=== PATIENT | female | born 1955 | race African-American/Black ===

== ENCOUNTER 2019-12-01 20:00 | Emergency (ER) | payer OTHER, SELFPAY ==
--- NOTE | ~2019-12-01 | XR_ITS ---
EXAMINATION: XR chest 2V DATE: 12/01/2019 20:30 INDICATION: Right-sided chest pain and shortness of breath TECHNIQUE: PA and lateral views of the chest are obtained. COMPARISON: None available FINDINGS: The lungs are free of acute opacities. There is no pleural effusion or pneumothorax. The ca rdiomediastinal silhouette is normal. There is mild thoracic spondylosis. There is mild lower thoraci c levocurvature. IMPRESSION: 1. No acute cardiopulmonary abnormality. Reviewed, dictated and finalized at location A.
--- NOTE | 2019-12-01 20:09 | ECG_ITS ---
Measurements Intervals [place] Rate: 99 P: 69 OR: 137 QRS: 53 QRSD: 78 T: 46 QT: 316 QTc: 407 Interpretive Statements SINUS RHYTHM BASELINE ARTIFACT- I, III, AVR, AVL NORMAL ECG Electronically Signed On 12-02-2019 8:37:21 CDT by Mohsen Verdin D.O.
[2019-12-01 20:10] VITALS: BP 166/96; PULSE 98; RESP 18; TEMP 36.6; O2SAT 100
--- NOTE | 2019-12-01 20:16 | ED.CHESTPAIN ---
HPI - Chest Pain General Chief Complaint: Chest Pain Stated Complaint: cp Time Seen by Provider: 12/01/19 20:11 Source: patient and RN notes reviewed Mode of arrival: ambulatory Limitations: no limitations History of Present Illness HPI narrative: Pt is a 64 y/o -[place] female with a Hx of asthma, who presents to the ED with c/o constant substernal, epigastric chest pain starting yesterday. She notes that she has a Hx of gallbladder complications, stating that her PCP recently advised her to have her gallbladder removed. She states this pain is similar to previous gallbladder attacks. Pt notes that she has been unable to schedule the surgery. She states that she developed pain in the center of her chest yesterday evening. Pt states that her pain has since begun to radiate into the rt side of her chest as well as her rt shoulder and rt arm. She notes that her pain worsens after eating, and states that it feels as though food is getting stuck in her esophagus. Pt describes her pain as dull, and currently rates her pain at 6/10. She reports chronic SOB accompanying her pain, but denies any fever or chills. MD complaint: chest pain Pertinent past history: asthma Onset (ago): day(s) (1) Timing of current episode: constant Pain location: other (midsternal chest) Pain radiation: right arm, right shoulder and other (rt side of chest) Pain scale (0-10): 6 Quality: dull Exacerbating factors: eating Associated symptoms: dyspnea (chronic) Related Data Allergies Allergy/AdvReac Type Severity Reaction Status Date / Time NSAIDS (Non-Steroidal Allergy Swelling Verified 12/01/19 20:25 Anti-Inflamma of Lip/Tongue/Throat Review of Systems Review of Systems: All systems reviewed & are unremarkable except as noted in HPI and below Constitutional: Constitutional: Denies chills and Denies fever(s) Cardiovascular: Cardiovascular: Reports chest pain (midsternal chest pain radiating into rt chest, rt arm, and rt shoulder) Respiratory: Respiratory: Reports dyspnea (chronic) [facility] Past Medical History Medical History (Updated 12/01/19 @ 23:42 by Lubna Thomas MD) Asthma Surgical History Surgical History Hx of arthroscopy of right knee Family History Family History (Updated 03/03/19 @ 16:48 by DOCTOR UNKNOWN) Father Cerebrovascular accident Sibling Family history of congestive heart failure Other Family history of arthritis Social History Social History Smoking status: Never smoker Alcohol intake: never Gender identity (if verbalized by the patient): Female Exam Narrative: Exam Narrative: GENERAL: Well-appearing, well-nourished, and in no acute distress. HEAD: Normocephalic, atraumatic EYES: PERRLA and EOMI, conjunctiva clear without discharge THROAT:Mucous membranes moist, Oropharynx normal without erythema, exudate, peritonsillar swelling or fluctuance NECK: Supple, without lymphadenopathy or mass RESPIRATORY: No respiratory distress, Airway patent, Respirations non-labored, Clear to auscultation without rales, rhonchi or wheeze HEART: Regular rate and rhythm. No murmur heard. Normal peripheral pulses. ABDOMEN: Soft, epigastric tenderness, nondistended, normal active bowel sounds. No masses. No rebound or guarding, No organomegaly. EXTREMITIES: No edema, normal strength with full range of motion. SKIN: Warm, dry, normal color without rash NEURO: Alert and oriented x3. CN 2-12 grossly intact. No focal deficits. PSYCH: Normal mood and affect. Course Reevaluation(s) Reevaluation #1: PAtient states her chest pain is resolving but she is developing sob from her asthma. Lungs are diminished bilaterally Date: 12/01/19 Time: 22:03 Reevaluation #2: PAtient states her breathing has improved but she has itching around her mouth. PAtient was given aspirin as apart of chest pain protoc
[2019-12-01 20:19] LABS: Basophils Percent Auto 0.8 % (0.2-1.2); Eosinophils Absolute Auto 0.2 K/mm3 (0-0.3); Eosinophils Percent Auto 3.3 % (0-4.4); Hematocrit 38.9 % (37.0-47.0); Lymphocytes Absolute Auto 2.65 K/mm3 (0.9-3.2); Lymphocytes Percent Auto 51.6 % (18.3-44.2); Mean Corpuscular HGB Conc 30.8 g/dl (32-36); Mean Platelet Volume 9.5 fl (7.4-10.4); Monocytes Absolute Auto 0.5 K/mm3 (0.1-0.6); Monocytes Percent Auto 8.9 % (2.6-8.5); Neutrophils Absolute Auto 1.8 K/mm3 (1.3-6.7); Neutrophils Percent Auto 35.4 % (45.5-73.1); Platelet Count Result 252 k/mm3 (150-375); Red Cell Distribution Width 13.3 % (11.5-14.5); White Blood Count 5.1 K/mm3 (4.5-10.0)
--- NOTE | 2019-12-01 20:27 | PC.NURSE ---
Called lab to add on orders at 2026
[2019-12-01 20:28] LABS: Prothrombin Time 12.4 Seconds (11.1-14.7)
[2019-12-01 20:29] LABS: Partial Thromboplastin Time 29.8 SECONDS (22.3-36.8)
[2019-12-01 20:30] LABS: Blood Urea Nitrogen 19 mg/dL (7-17); Calcium 9.4 mg/dL (8.4-10.2); Carbon Dioxide 31 mmol/L (22-30); Chloride 103 mmol/L (98-107); Estimated CRCL calculation 65 ml/min; Estimated Glomerular Filt Rate > 60; Glucose 96 mg/dL (65-105); Potassium 3.8 mmol/L (3.4-5.0); Sodium 138 mmol/L (137-145)
[2019-12-01 20:38] LABS: Alanine Aminotransferase 20 U/L (4-35); Albumin Level 4.6 g/dL (3.5-5.1); Alkaline Phosphatase 137 U/L (38-126); Aspartate Amino Transferase 32 U/L (14-36); Bilirubin,Total 0.4 mg/dL (0.2-1.3); Lipase 56 U/L (23-300)
[2019-12-01 20:39] LABS: D Dimer 0.44 ug/mL (<0.48)
[2019-12-01 20:42] LABS: Troponin I < 0.012 ng/mL (0.000-0.034)
[2019-12-01] MEDS: ASPIRIN 81 MG CHEWABLE TABLET 324 MG (21:07)
[2019-12-01 21:16] VITALS: BP 114/83; PULSE 112; RESP 18; O2SAT 98
[2019-12-01 22:01] VITALS: BP 105/86; PULSE 105; RESP 20; O2SAT 99
[2019-12-01] MEDS: IPRATROPIUM BR 0.02% INH SOLN 0.5 MG/2.5 ML VIAL INHALATION (22:30)
[2019-12-01] MEDS: ALBUTEROL SULFATE NEB 2.5 MG/0.5 ML INH 5 MG INHALATION (22:30)
[2019-12-01 22:32] VITALS: PULSE 105; RESP 19
[2019-12-01 22:39] VITALS: PULSE 92; RESP 21
[2019-12-01 23:04] VITALS: BP 128/84; PULSE 97; RESP 16; O2SAT 97
[2019-12-01 23:49] LABS: Troponin I < 0.012 ng/mL (0.000-0.034)
--- NOTE | 2019-12-01 23:57 | PC.NURSE ---
Patient c/o tingling in lips about an hour after taking Asa. Denies any SOB.
[2019-12-02] MEDS: methylPREDNISolone SOD SUCC 125 MG VIAL IV PUSH (00:02)
[2019-12-02 00:25] VITALS: BP 145/75; PULSE 74; RESP 16; O2SAT 95
== END 2019-12-02 01:02 | disposition home or self-care (01) ==
PROVIDERS: Emergency Medicine; Emergency Provider General Practice; PCP Internal Medicine
DX: T78.40XA Allergy, unspecified, initial encounter (principal)
CPT/HCPCS: 36415; 71046; 80048; 80076; 83690; 84484; 85025; 85380; 85610; 85730; 93005; 94640; 96374; 96375; 99284; A9270; J0131; J1200; J2930

== ENCOUNTER 2020-09-05 08:16 | Outpatient (CLI) | payer OTHER, SELFPAY ==
--- NOTE | ~2020-09-05 | XR_ITS ---
EXAMINATION: XR UGI wo kub DATE: 09/05/2020 10:04 INDICATION: Dysphagia TECHNIQUE: The patient drank thick barium, gas-producing crystals, and thin barium. Conventional supi ne abdomen radiographs and fluoroscopy of the esophagus, stomach, and proximal small bowel were perfo rmed. Fluoroscopy exposure time was 2.4 minutes. The DAP for this procedure was 13.134 Gycm2. COMPARISON: None. FINDINGS: There is no mass or stricture of the esophagus. Esophageal motility is normal. There is no hiatal hernia. There was no gastroesophageal reflux with provocative maneuvers. The stomach and proxi mal small bowel show normal folding patterns. IMPRESSION: 1. Unremarkable upper GI. Reviewed, dictated and finalized at location A. GER INVENTORY IMPRESSION: 1. Unremarkable upper GI.
== END 2020-09-05 08:17 | disposition home or self-care (01) ==
PROVIDERS: PCP Internal Medicine; Visit Provider Internal Medicine
DX: R13.10 Dysphagia, unspecified (principal)
CPT/HCPCS: 74240

== ENCOUNTER 2020-10-13 15:06 | Outpatient (CLI) | payer OTHER, SELFPAY ==
--- NOTE | ~2020-10-13 | MM_ITS ---
EXAMINATION: MM screening [facility]ary BI w obed HISTORY: Screening TECHNIQUE: Craniocaudal and mediolateral oblique 3-D tomosynthesis images were obtained and synthetic 2-D images were generated. CAD analysis was submitted and interpreted. COMPARISON: 09/27/2019 BREAST PARENCHYMAL COMPOSITION: There are scattered areas of fibroglandular density. FINDINGS: There is no evidence of suspicious mass, calcification, or architectural distortion to sugg est malignancy in either breast. There has been no suspicious interval change. IMPRESSION: 1. No mammographic evidence of malignancy. 2. Recommend routine screening mammography in one year. BI-RADS Category 1: Negative Reviewed, dictated and finalized at location A. ING ROUTE DRIVER
== END 2020-10-13 15:07 | disposition home or self-care (01) ==
LOC: ANHIMG 15:10
PROVIDERS: PCP Internal Medicine; Visit Provider Internal Medicine
DX: Z12.31 Encounter for screening mammogram for malignant neoplasm of breast (principal)
CPT/HCPCS: 77063; 77067

== ENCOUNTER 2020-11-07 14:00 | Outpatient (RCR) | payer OTHER, SELFPAY ==
--- NOTE | 2020-08-15 11:38 | PTOPEVAL ---
Thank you for referring Gail Moreno to [facility] [place]Note 2[place]? The patient is scheduled to be seen for therapy? 1x/week for 6 weeks. Please review, sign, date and return this plan of care LINDA. I agree with and certify that the following plan of care is medically necessary. Referring Physician Date Attending Provider: Gerardo Singh MD Referring Provider: *PT Outpatient Evaluation Start: 08/15/20 10:02 Freq: Status: Active Protocol: Document 08/15/20 10:04 YOEL (Rec: 08/15/20 10:55 YOEL [id number]) Therapy Assessment Status Assessment Status Assessment Status Evaluation Outpatient Past Medical History Past Medical History Source of Past Medical History Patient,Recalled from Previous Visit, Confirmed with Patient /Family Neurological History Hx Neurological Disorders No Significant History Cardiovascular History Hx Cardiac Disorders No Significant History Respiratory History Hx Asthma Yes Gastrointestinal History Hx Gastroesophageal Reflux Disease Yes Hx Hernia Yes Genitourinary History Hx Genitourinary Disorders No Significant History Musculoskeletal History Hx Arthritis Yes: knee Hx Orthopedic Surgery Yes: menisuc repair 2017 Reproductive History Hx Post Menopausal Yes Evaluation Information Problem Diagnosis OA knee- left Onset 6-7 months Cause unknown Additional Evaluation Detail Pt very resistive to answer questions. states her right LE is longer, no measurements Subjective Information She reports constant stabbing Query Text:As Reported By Patient/ knee pain. She will at times Family have dull ache pain with shooting pain in the knee. She is also having left hip pain. She reports limitations with standing, walking, squating and completing daily task. She reports increased pain with work task. She does not perform a regular fitness program. She received an injection, but no relief of her symptoms. She has a f/u with MD in 3 months. Pain Assessment Timing of Pain Assessment Timing of Pain Assessment Assessment Pain Scale Pain Scale Used Numeric (1 - 10) Self Report Pain Assessment Left Knee(s)
--- NOTE | 2020-08-29 07:29 | PCPTNOTE ---
Patient called & cancelled scheduled appointment this date due to work.
--- NOTE | 2020-09-12 11:18 | PCPTNOTE ---
Patient called & cancelled scheduled appointment for the next 2 weeks, due to being on Covid 19 quarantine.
--- NOTE | 2020-10-06 16:17 | PTOPEVAL ---
Thank you for referring Gail Mullen to [facility] [place].? The patient is scheduled to be seen for therapy? 2x/week for 3 weeks. Please review, sign, date and return this plan of care LINDA. I agree with and certify that the following plan of care is medically necessary. Referring Physician Date Attending Provider: Gerardo Singh MD Referring Provider: *PT Outpatient Evaluation Start: 08/15/20 10:02 Freq: Status: Active Protocol: Document 10/06/20 13:20 YOEL (Rec: 10/06/20 14:09 YOEL [id number]) Therapy Assessment Status Assessment Status Assessment Status Re-evaluation Outpatient Past Medical History Past Medical History Source of Past Medical History Patient,Recalled from Previous Visit, Confirmed with Patient /Family Neurological History Hx Neurological Disorders No Significant History Cardiovascular History Hx Cardiac Disorders No Significant History Respiratory History Hx Asthma Yes Gastrointestinal History Hx Gastroesophageal Reflux Disease Yes Hx Hernia Yes Genitourinary History Hx Genitourinary Disorders No Significant History Musculoskeletal History Hx Arthritis Yes: knee Hx Orthopedic Surgery Yes: meniscus repair 2017 Reproductive History Hx Post Menopausal Yes Evaluation Information Problem Diagnosis OA knee- left Onset 6-7 months Cause unknown Additional Evaluation Detail She received an injection, but no relief of her symptoms. She has a f/u with MD in 3 months. Subjective Information Pt was DX with COVID and Query Text:As Reported By Patient/ unable to perform her HEP Family until 09/20/20. She reports cont constant stabbing, shooting pain of left knee. She is also having left hip pain. She reports continued limitations with standing, walking, squating and completing daily task. She reports increased pain with work task. Pain Assessment Timing of Pain Assessment Timing of Pain Assessment Re-assessment Pain Scale Pain Scale Used Numeric (1 - 10) Self Report Pain Assessment Left Knee(s) Reported Pain Level 6 Pain Description Aching,Sharp Pain Frequency Chronic,Continuous Lowest Pain Intensity 5 Greatest Pain In
--- NOTE | 2020-10-27 11:50 | PCPTNOTE ---
Patient called & cancelled scheduled appointment this date due to work.
--- NOTE | 2020-11-03 10:59 | PCPTNOTE ---
Patient did not show up for scheduled appointment this date. Called pt, she forgot about the appt. She has been resched for next Tu.
--- NOTE | 2020-11-07 14:41 | PTOPEVAL ---
Thank you for referring Gial Moreno to [facility] [place][Note 2].? Pt has attended 7 therapy visits with multiple cancelled/no show visits. She has not progress with her pain, strength or tolerance with functional task. She demonstrates limited progress with therapy towards goals. She has been provided a HEP to maintain her levle of function. Please review, sign, date and return discharge note LINDA. I agree with and certify that the following plan of care is medically necessary. Referring Physician Date Attending Provider: Gerardo Singh MD Physical Therapy Discharge Note Problem Diagnosis OA knee- left Onset 6-7 months Cause unknown Additional Evaluation Detail She received an injection, but no relief of her symptoms. She has a f/u with MD in 3 months. Subjective Information She reports cont knee pain Query Text:As Reported By Patient/ that increases with steps, Family walking, standing, sitting, ADL's and IADL's. She reports knee pain is only slightly better with therapy. States the US makes the knee feel better, but no terminal block assembler carry-over of relief. Pain Assessment Left Knee(s) Reported Pain Level 6 Pain Description Aching,Tightness Pain Frequency Chronic,Continuous Lowest Pain Intensity 5 Greatest Pain Intensity 10 Pain Score Pain Score 6: Self Report Lower Extremity Muscle Strength Testing Right Hip Flexion Strength 4+ Good + Hip Extension Strength 3 Fair Hip Abduction Strength 3- Fair - Hip Strength Comments poor effort Left Hip Flexion Strength 3+ Fair + Hip Extension Strength 3 Fair Hip Abduction Strength 3- Fair - Hip Strength Comments poor effort Knee Strength Right Knee Flexion Strength 3+ Fair + Knee Extension Strength 5 Normal Knee Strength Comments poor effort Left Knee Flexion Strength 3+ Fair + Knee Extension Strength 3+ Fair + Knee Strength Comments poor effort Gait Assessment Gait Pattern Trendelenburg Gait Gait Pattern Observed Decreased Stride Length - Left ,Decreased Stride Length - Right,No Heel Strike - Left,No Heel Strike - Right Other Gait Observations slow bernardo Stair Climbing Assessment Stair Climbing Assistive Devices Railings Weight Bearing Status - Left As Tolerated Weight Bearing Status - Right As Tolerated Number of Steps Cl
== END 2020-11-08 08:39 | disposition home or self-care (01) ==
LOC: ANHPT 14:00
PROVIDERS: PCP Internal Medicine; Visit Provider Orthopaedic Surgery
DX: M17.12 Unilateral primary osteoarthritis, left knee (principal)
CPT/HCPCS: 97035; 97110; 97162; 97530

== ENCOUNTER 2021-01-10 07:16 | Outpatient (CLI) | payer OTHER, SELFPAY ==
[2021-01-10 07:41] LABS: Alanine Aminotransferase 15 U/L (4-35); Albumin Level 4.3 g/dL (3.5-5.1); Alkaline Phosphatase 115 U/L (38-126); Anion Gap 3 mmol/L (8-16); Aspartate Amino Transferase 32 U/L (14-36); Bilirubin,Total 0.2 mg/dL (0.2-1.3); Blood Urea Nitrogen 20 mg/dL (7-17); Calcium 8.9 mg/dL (8.4-10.2); Carbon Dioxide 32 mmol/L (22-30); Chloride 104 mmol/L (98-107); Cholesterol 170 mg/dL (0-200); Estimated Glomerular Filt Rate > 60; Glucose 93 mg/dL (65-105); HDL Direct 77 mg/dL; Potassium 4.7 mmol/L (3.4-5.0); Sodium 139 mmol/L (137-145); Triglycerides 43 mg/dL (<150)
[2021-01-10 07:52] LABS: LDL Cholesterol Direct 73 mg/dL
== END 2021-01-10 07:17 | disposition home or self-care (01) ==
PROVIDERS: PCP Internal Medicine; Visit Provider Internal Medicine
DX: Z00.00 Encounter for general adult medical examination without abnormal findings (principal); E55.9 Vitamin D deficiency, unspecified
CPT/HCPCS: 36415; 80053; 80061; 82306

== ENCOUNTER 2021-03-12 17:55 | Emergency (ER) | payer OTHER, SELFPAY ==
--- NOTE | ~2021-03-12 | XR_ITS ---
EXAMINATION: XR lumbar spine 2-3V EXAM DATE: 03/12/2021 19:12 INDICATION: Low back pain. TECHNIQUE: Lumber spine frontal, lateral, lateral L5-S1 projections for interpretation. There is no prior study for comparison. FINDINGS: There are no acute fractures identified. The vertebral bodies are aligned in the AP dimensi on. Vertebral body heights are maintained. There is mild diffuse lumbar disc disease and facet arthro [place]. Sacrum, sacroiliac joints, sacral arcuate lines are intact. Paraspinal soft tissue is unremark able. IMPRESSION: Mild lumbar spondylosis. Reviewed, dictated and finalized at location A. IMPRESSION: Mild lumbar spondylosis.
--- NOTE | ~2021-03-12 | XR_ITS ---
EXAMINATION: XR hip RT min 3V w AP pelvis EXAM DATE: 03/12/2021 19:12 INDICATION: Injury, hit By Stretcher, rt Hip Burning Down Thigh . Initial encounter. TECHNIQUE: Right hip frontal, crosstable lateral and 'frog-leg' projections for interpretation. Front al projection pelvis. There is no prior study for comparison. FINDINGS: Smooth right hip femoral head contour, no radiographic evidence of avascular necrosis. The re is mild symmetric bilateral hip primary osteoarthritis. There are no acute fractures or dislocatio ns identified. There is no subcutaneous gas. Calcifications in the pelvis are believed to be phlebo liths. There are no radiopaque foreign bodies. IMPRESSION: 1. Pelvis, right hip exam without acute osseous findings. Reviewed, dictated and finalized at location A.
[2021-03-12 18:02] VITALS: BP 143/89; PULSE 70; RESP 14; TEMP 36.2; O2SAT 98
--- NOTE | 2021-03-12 19:30 | ED.GENADULT ---
HPI - General Adult General Chief complaint: Extremity Injury, Lower Stated complaint: burning pain in right hip Time Seen by Provider: 03/12/21 18:25 Source: patient History of Present Illness HPI narrative: Patient is a 66 y/o female complaining of right hip pain starting 3 hours ago. She states that she was accidentally struck by a stretcher from the cath lab radiology technician in the hallway. She did not fall. She describes her pain as burning and rates it as 7-8/10. There is no pain radiation to leg. She is able to ambulate without difficulty. Related Data Home Medications Medication Instructions Recorded Confirmed albuterol sulfate 2.5 mg INHALATION Q6H 08/31/19 01/04/21 Allergies Allergy/AdvReac Type Severity Reaction Status Date / Time peanut Allergy Severe ASTHMA Verified 01/04/21 09:45 ATTACK ibuprofen Allergy Unknown lips swell Verified 01/04/21 09:45 NSAIDS (Non-Steroidal Allergy Swelling Verified 01/04/21 09:45 Anti-Inflamma of Lip/Tongue/Throat FISH Allergy Severe ASTHMA Uncoded 01/04/21 09:45 ATTACK NAPROXEN SODIUM Allergy Unknown lips swell Uncoded 01/04/21 09:45 Review of Systems Review of Systems: All systems reviewed & are unremarkable except as noted in HPI and below Gastrointestinal: Gastrointestinal: Reports vomiting Genitourinary: Genitourinary: Reports hematuria and Reports dysuria Musculoskeletal: Musculoskeletal: Reports back pain and Reports arthralgias (right hip pain) [facility] Past Medical History Medical History Asthma Surgical History Surgical History Hx of arthroscopy of right knee Family History Family History Father Cerebrovascular accident Sibling Family history of congestive heart failure Other Congestive heart failure (CHF) Father Cerebrovascular accident Mother No problems noted. Mother Bowel obstruction Sibling Congestive heart failure (CHF) Other Family history of arthritis Social History Social History Smoking status: Never smoker Alcohol intake: never Gender identity (if verbalized by the patient): Female Exam Const: General: no acute distress and well developed HENMT: Head: normal to inspection Ears: external ears normal General nose exam: Normal external nose present Eyes: General: appearance normal, both eyes and all related structures Conjunctivae: conjunctivae normal Resp: Effort & Inspection: normal respiratory effort Skin: General skin exam: normal color and turgor normal Neuro: Cognition (Neuro): normal cognition Motor exam (neuro): Other motor observations present (motor strength 5/5 both legs) Sensory Exam: other (sensation intact in both legs) Extrem: General: normal to inspection, full ROM and no pedal edema Right lower extremity: hip/thigh Details: normal to inspection and normal ROM; no tenderness Psych: Appearance: grossly normal Mental Status: mental status grossly normal Affect: normal affect Course Vital Signs Vital signs: Vital Signs Temperature 36.2 C L 03/12/21 18:02 Pulse Rate 70 03/12/21 18:02 Respiratory Rate 14 03/12/21 18:02 Blood Pressure 143/89 H 03/12/21 18:02 Pulse Oximetry 98 03/12/21 18:02 Temperature 36.2 C L 03/12/21 18:02 Pulse Rate 70 03/12/21 18:02 Respiratory Rate 14 03/12/21 18:02 Blood Pressure 143/89 H 03/12/21 18:02 Pulse Oximetry 98 03/12/21 18:02 Medical Decision Making Vital Signs Vital Signs: Vital Signs Temperature 36.2 C L 03/12/21 18:02 Pulse Rate 70 03/12/21 18:02 Respiratory Rate 14 03/12/21 18:02 Blood Pressure 143/89 H 03/12/21 18:02 Pulse Oximetry 98 03/12/21 18:02 Temperature 36.2 C L 03/12/21 18:02 Pulse Rate 70 03/12/21 18:02 Respiratory Rate 14 03/12
== END 2021-03-12 19:58 | disposition home or self-care (01) ==
PROVIDERS: Emergency Provider Emergency Medicine; PCP Internal Medicine
DX: S70.01XA Contusion of right hip, initial encounter (principal); M54.9 Dorsalgia, unspecified; W22.8XXA Striking against or struck by other objects, initial encounter; Y92.238 Other place in hospital as the place of occurrence of the external cause
CPT/HCPCS: 72100; 73502; 99284

== ENCOUNTER 2021-06-27 09:17 | Outpatient (CLI) | payer OTHER, SELFPAY ==
[2021-06-27 09:43] LABS: Basophils Percent Auto 0.5 % (0.2-1.2); Eosinophils Absolute Auto 0.2 K/mm3 (0-0.3); Hematocrit 38.5 % (37.0-47.0); Hemoglobin 12.2 g/dL (12.0-15.0); Immature Granulocyte Absolute 0.01 K/mm3 (0.00-0.031); Immature Granulocyte Percent A 0.2 % (0-0.5); Lymphocytes Absolute Auto 1.77 K/mm3 (0.9-3.2); Mean Corpuscular HGB Conc 31.7 g/dl (32-36); Mean Corpuscular Hemoglobin 25.6 pg (26-34); Mean Corpuscular Volume 80.9 fl (80-100); Mean Platelet Volume 9.7 fl (7.4-10.4); Monocytes Absolute Auto 0.3 K/mm3 (0.1-0.6); Monocytes Percent Auto 7.5 % (2.6-8.5); Neutrophils Absolute Auto 1.7 K/mm3 (1.3-6.7); Neutrophils Percent Auto 41.8 % (45.5-73.1); Platelet Count Result 227 k/mm3 (150-375); Red Blood Count 4.76 M/mm3 (4.2-5.4); Red Cell Distribution Width 13.5 % (11.5-14.5)
[2021-06-27 09:59] LABS: Alanine Aminotransferase 15 U/L (4-35); Albumin Level 4.5 g/dL (3.5-5.1); Alkaline Phosphatase 105 U/L (38-126); Anion Gap 5 mmol/L (8-16); Aspartate Amino Transferase 32 U/L (14-36); Bilirubin,Total 0.4 mg/dL (0.2-1.3); Blood Urea Nitrogen 14 mg/dL (7-17); Calcium 9.4 mg/dL (8.4-10.2); Carbon Dioxide 34 mmol/L (22-30); Chloride 104 mmol/L (98-107); Cholesterol 173 mg/dL (0-200); Estimated Glomerular Filt Rate > 60; Glucose 98 mg/dL (65-110); HDL Direct 75 mg/dL; Potassium 4.3 mmol/L (3.4-5.0); Sodium 143 mmol/L (137-145); Triglycerides 54 mg/dL (<150)
[2021-06-27 10:10] LABS: LDL Cholesterol Direct 72 mg/dL
[2021-06-27 18:41] LABS: Vitamin D 25 Hydroxy 27.2 ng/mL
== END 2021-06-27 09:18 | disposition home or self-care (01) ==
PROVIDERS: PCP Internal Medicine; Visit Provider Nurse Practitioner
DX: N18.30 Chronic kidney disease, stage 3 unspecified (principal); E55.9 Vitamin D deficiency, unspecified; Z13.220 Encounter for screening for lipoid disorders
CPT/HCPCS: 36415; 80053; 80061; 82306; 85025

== ENCOUNTER 2021-11-15 15:00 | Outpatient (CLI) | payer OTHER, SELFPAY ==
--- NOTE | ~2021-11-15 | MM_ITS ---
EXAMINATION: MM screening [facility] BI w obed HISTORY: Screening mammogram TECHNIQUE: Craniocaudal and mediolateral oblique 3-D tomosynthesis images were obtained and synthetic 2-D images were generated. CAD analysis was submitted and interpreted. COMPARISON: 10/13/2020, 09/27/2019, 09/23/2018 BREAST PARENCHYMAL COMPOSITION: There are scattered areas of fibroglandular density. FINDINGS: There is a cyst in the outer left breast. There is no evidence of suspicious mass, calcific ation, or architectural distortion to suggest malignancy in either breast. There has been no suspicio us interval change. IMPRESSION: 1. No mammographic evidence of malignancy. 2. Recommend routine screening mammography in one year. BI-RADS Category 2: Benign finding(s). Reviewed, dictated and finalized at location A. ER HELPER
== END 2021-11-15 15:01 | disposition home or self-care (01) ==
LOC: ANHIMG 15:02
PROVIDERS: PCP Internal Medicine; Visit Provider Internal Medicine
DX: Z12.31 Encounter for screening mammogram for malignant neoplasm of breast (principal)
CPT/HCPCS: 77063; 77067

== ENCOUNTER 2022-09-02 14:13 | Outpatient (CLI) | payer OTHER, SELFPAY ==
--- NOTE | ~2022-09-02 | XR_ITS ---
EXAMINATION: XR forearm RT 2V, XR wrist RT min 3V DATE: 09/02/2022 14:48 INDICATION: Right wrist and forearm injury post fall TECHNIQUE: 1. AP an lateral views of the right forearm were obtained. 2. PA, oblique, lateral and navicular views of the right wrist were obtained. COMPARISON: Right hand radiographs dated 03/01/2021 FINDINGS: Normal alignment at the right elbow, wrist and visualized hand. No fracture. Polyarticular osteoarthr itis, mild at the wrist, midcarpal, triscaphe and first carpal metacarpal joints and moderate at the first metacarpophalangeal joint. Soft tissues are unremarkable. No right elbow joint effusion. IMPRESSION: 1. No right elbow joint effusion or acute osseous abnormality at the right wrist or forearm. 2. 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 Reviewed, dictated and finalized at location B. ERN MAKER IMPRESSION: 1. No right elbow joint effusion or acute osseous abnormality at the right wris t or forearm. 2. 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
--- NOTE | ~2022-09-02 | XR_ITS ---
XR humerus RT DATE: 09/02/2022 14:48 INDICATION: Fall. Right arm injury, pain TECHNIQUE: AP and lateral views COMPARISON: None FINDINGS: No fracture or dislocation, periosteal reaction or bone destruction. Normal alignment at th e acromioclavicular, glenohumeral and elbow joints. IMPRESSION: Negative right humerus Reviewed, dictated and finalized at location A. HERSMITH IMPRESSION: Negative right humerus
== END 2022-09-02 14:14 | disposition home or self-care (01) ==
PROVIDERS: PCP Internal Medicine; Visit Provider Internal Medicine
DX: M19.031 Primary osteoarthritis, right wrist (principal)
CPT/HCPCS: 73060; 73090; 73110

== ENCOUNTER 2023-01-07 15:16 | Outpatient (CLI) | payer OTHER, SELFPAY ==
--- NOTE | ~2023-01-07 | MM_ITS ---
EXAMINATION: MM screening [facility] BI w obed HISTORY: Screening mammogram TECHNIQUE: Craniocaudal and mediolateral oblique 3-D tomosynthesis images were obtained and synthetic 2-D images were generated. CAD analysis was submitted and interpreted. COMPARISON: 11/15/2021, 10/13/2020, 09/27/2019 bilateral screening mammogram examinations BREAST PARENCHYMAL COMPOSITION: There are scattered areas of fibroglandular density. FINDINGS: Stable circumscribed benign lymph node in the upper outer right breast. There is no evidenc e of suspicious mass, calcification, or architectural distortion to suggest malignancy in either [address]. There has been no suspicious interval change. IMPRESSION: 1. No mammographic evidence of malignancy. 2. Recommend routine screening mammography in one year. BI-RADS Category 2: Benign finding(s). Reviewed, dictated and finalized at location A.
== END 2023-01-07 15:17 | disposition home or self-care (01) ==
PROVIDERS: PCP Internal Medicine; Visit Provider Internal Medicine
DX: Z12.31 Encounter for screening mammogram for malignant neoplasm of breast (principal)
CPT/HCPCS: 77063; 77067

== ENCOUNTER 2023-01-13 08:29 | Outpatient (CLI) | payer OTHER, SELFPAY ==
--- NOTE | 2023-02-02 12:22 | WPDSLEEPSTUD ---
Sleep Study Date of Study: 01/13/23 Ordering Provider: Susie Jones APRN Interpreting Physician: Essie Lindsey MD Sleep Study Type: Polysomnogram Height: 1.69 m Weight: 86.183 kg Body Mass Index: 30.2 Neck Circumference (inches): 16 [place]: 7 Reason for Sleep Study Difficulty staying asleep Sleep History Gail Moreno is a 68 yo female presenting to the sleep lab for an in-lab study due to trouble staying asleep and waking multiple times throughout the night. She occasionally awakens from sleep short of breath. She occasionally awakens at night with heartburn, belching or cough. She constantly snores and snores loudly enough that others complain. She rarely has trouble sleeping when she has a cold. She rarely suddenly wakes up gasping for breath during the night. She never sweats excessively at night. She never notices her heart pounding or beating irregularly during the night. She never falls asleep during the day or involuntarily. She never falls asleep while driving. She never experiences loss of muscle tone with strong emotion. She rarely has trouble at work because of sleepiness. She never feels paralyzed on waking or falling asleep. She never experiences vivid dreams upon waking or falling asleep. She rarely feels afraid of going to sleep. She does not have nightmares. She rarely recalls her dreams. She occasionally has thoughts racing through her mind. She rarely feels sad or depressed. She rarely feels anxiety or worry about things. She does not have muscle tension. She does not notice parts of her body jerk. She never kicks during the night or has crawling or aching feelings in her legs. She occasionally feels leg pain at night. She never grinds her teeth during sleep or has morning jaw pain. She never feels bothered by pain during the day and is rarely awakened by pain during the night. She occasionally wakes up feeling stiff, sore, and achy in the morning with pain in her neck, spine, or joints. She has GERD and takes omeprazole. Normal bedtime is around 10 pm on the weekdays and the same on the weekends, taking 30 minutes to fall asleep. She typically gets about 3 to 4 hours of sleep per night. Her wake up time is 4:25 am on the weekdays and 6 am on the weekends. She typically wakes up 5 to 6 times per night, staying awake around 30 minutes, often going to the bathroom. She is drowsy for an hour after waking. She denies taking naps. A short nap is not refreshing. She feels better in the afternoon compared to other times of day. Habits: Never smoked tobacco. Caffeine use is one 16 oz serving per day. No alcohol use or recreational substances. [facility] Past Medical History Medical History Asthma Chronic rhinitis Cubital tunnel syndrome on right GERD (gastroesophageal reflux disease) Osteoarthritis Tear meniscus knee Vitamin D deficiency Surgical History Surgical History Hx of arthroscopy of right knee Family History Family History Father Cerebrovascular accident Sibling Family history of congestive heart failure Other Congestive heart failure (CHF) Father Cerebrovascular accident Mother No problems noted. 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
[2023-02-02 18:28] VITALS: BMI 30.2
== END 2023-01-14 07:02 | disposition home or self-care (01) ==
LOC: ANHCSM 08:29
PROVIDERS: PCP Family Medicine; Visit Provider Nurse Practitioner Family
DX: G47.30 Sleep apnea, unspecified (principal); R06.83 Snoring
CPT/HCPCS: 95810

== ENCOUNTER 2023-05-23 15:00 | Outpatient (RCR) | payer OTHER, SELFPAY ==
--- NOTE | 2023-02-27 14:10 | PTOPEVAL1 ---
Assessment and note entered by Rafael Dale, PT Evaluation Information Diagnosis radiating back pain and L knee pain Onset 2 plus years for the knee, 3-4 months for the back . Subjective Information The patient reports having needed to have a L knee replacement for 2 years, but she tried to hold off and has an appt with Dr. Singh in April. The back pain with radiating symptoms is new, but she reports she knows the knee cannot be helping matters. Patient has trouble sleeping, getting in and out of chairs, pushing hospital beds. Patient using topical cream, heating pad, Tylenol, and a massager to help with the pain. Reported Pain Level Pain Score 5: Self Report Assessment PT Clinical Summary Gail is a 68 year old female coming into the clinic with a diagnosis of pain in L knee and back pain. Patient has weakness in her core, tightness in her lower back, and radiating symptoms down the L knee. Patient also reports a bum L knee that needs to be replaced and has an appointment with her surgeon to discuss that. Physical therapy will work on improving her core strength and loosening her lower back. Will do modalities and manual therapy as needed for pain control. Plan of Care Interventions Electrical Stimulation,Gait Training,Hot Pack/Cold Pack,Manual Therapy,Neuro Re-education,Patient/ Caregiver Education,Therapeutic Activities, Therapeutic Exercise,Ultrasound PT Services Indicated Yes Treatment Frequency and 1-2x/wk for 4 weeks Duration These treatments will address the objective and functional deficits as defined above. The patient will be advanced safely and appropriately in order for the patient to progress towards his/her prior level of function. Additional exercises will be introduced and as well as a comprehensive home exercise program upon discharge, if needed, ?to ensure carryover of functional gains achieved in the clinic. This treatment plan has been reviewed and agreement upon by the patient.
--- NOTE | 2023-02-27 14:11 | OPREHPOC ---
Outpatient Therapy Plan of Care This is a Multidisciplinary Plan of Care that may contain components documented by all disciplines (PT, OT, and ST.) PT Problem 1 PT Problem #1 Knowledge Deficit PT Goal 1 Goal Independent with HEP Target Visit 6 PT Problem 2 PT Problem #2 Pain PT Goal 1 Goal decrease pain to no more than 5/10 Target Visit 6 PT Goal 2 Goal Centralization of symptoms to the low back Target Visit 6 PT Problem 3 PT Problem #3 Impaired Strength PT Goal 1 Goal able to do 10 reps of bridges without increased low back pain. Target Visit 6
--- NOTE | 2023-04-08 15:02 | PTOPPROG ---
Assessment and note entered by Rafael Dale, PT Evaluation Information Assessment Status Progress Diagnosis Pain in L knee, Radiculopathy Lumbar region Onset 2 plus years for the knee, 4-5 months for the back . Subjective Information Patient reports the back and knee are a little bit better. She still has her appointment to see Dr. Singh about her L knee in Mid April. States still having trouble getting up from a chair after sitting for awhile or pushing patient' s beds. Has been trying to do her exercises and a circuit of her exercise bike, treadmill, and sounds like a weight machine, but has trouble doing a full circuit. (talked to patient about just trying to focus on her HEP and one of the three instead of a circuit and then rotate to a different one each day) Assessment PT Clinical Summary Gail is a 68 year old female coming into the clinic with a diagnosis of pain in L knee and radiculopathy in the lumbar region. Patient was evaluated on 02/25/23 and has attended 5 sessions so far. Recommend continued therapy to work on improving symptoms until seeing Dr. Singh next month. Plan of Care Interventions Electrical Stimulation,Gait Training,Hot Pack/Cold Pack,Manual Therapy,Neuro Re-education,Patient/ Caregiver Education,Therapeutic Activities, Therapeutic Exercise,Ultrasound Other Interventions cupping, taping, IASTM PT Services Indicated Yes Treatment Frequency and 1-2x/wk for 8 visits Duration These treatments will address the objective and functional deficits as defined above. The patient will be advanced safely and appropriately in order for the patient to progress towards his/her prior level of function. Additional exercises will be introduced and as well as a comprehensive home exercise program upon discharge, if needed, ?to ensure carryover of functional gains achieved in the clinic. This treatment plan has been reviewed and agreement upon by the patient.
--- NOTE | 2023-05-06 16:38 | PTOPPROG ---
Assessment and note entered by Rafael Dale, PT Evaluation Information Assessment Status Progress Diagnosis Pain in L knee, radiculopathy Lumbar region Onset 2 plus years for the knee, 4-5 months for the back . Subjective Information Patient reports her back is feeling better and she has her appointment with Dr. Singh to talk about her knee May 21. 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 Assessment PT Clinical Summary Gail is a 68 year old female coming into the clinic with a diagnosis of L knee pain and radiculopathy Lumbar region. She was evaluated on 02/25/23 and has attended 9 session. Patient does have increase lumbar range of motion and core strength, but therapist and her had a discussion how she is going to be having the L knee replaced and until that happens she will not be able to significantly progress with the knee or back. Patient would still like to continue therapy until she sees her ortho doc and gets the knee scheduled. Plan of Care Interventions Electrical Stimulation,Gait Training,Hot Pack/Cold Pack,Manual Therapy,Neuro Re-education,Patient/ Caregiver Education,Therapeutic Activities, Therapeutic Exercise,Ultrasound Other Interventions cupping, taping, IASTM PT Services Indicated Yes Treatment Frequency and 1 times a week for 3 visits Duration These treatments will address the objective and functional deficits as defined above. The patient will be advanced safely and appropriately in order for the patient to progress towards his/her prior level of function. Additional exercises will be introduced and as well as a comprehensive home exercise program upon discharge, if needed, ?to ensure carryover of functional gains achieved in the clinic. This treatment plan has been reviewed and agreement upon by the patient.
--- NOTE | 2023-05-26 12:00 | PCPTNOTE ---
This treatment is being continued on visit number [id number]. Please see documentation on both accounts to view progress. Completed interventions, outcomes, and problems have been marked as Inactive to facilitate the copying of the Care plan routine for recurring accounts.
== END 2023-05-26 11:01 | disposition home or self-care (01) ==
LOC: ANHPT 15:00
PROVIDERS: PCP Nurse Practitioner Family; Visit Provider Nurse Practitioner Family
DX: M25.562 Pain in left knee (principal); M54.16 Radiculopathy, lumbar region
CPT/HCPCS: 97110; 97161; 97530; 99199

== ENCOUNTER 2023-07-22 12:30 | Outpatient (RCR) | payer OTHER, SELFPAY ==
--- NOTE | 2023-05-27 16:03 | PCPTNOTE ---
pt did not show for today's reeval, called her and she stated she thought her appt was this Fri; she is going to reschedule appt;
--- NOTE | 2023-06-17 13:17 | OPREHPOC ---
Outpatient Therapy Plan of Care This is a Multidisciplinary Plan of Care that may contain components documented by all disciplines (PT, OT, and ST.) PT Problem 1 PT Problem #1 Knowledge Deficit PT Goal 1 Goal Independent with HEP Target Visit 6 Progress Partially Met PT Goal 2 Progress Met Comment 06-17-23 progress met goal continue to progress HEP and education PT Problem 2 PT Problem #2 Pain PT Goal 1 Goal decrease pain to no more than 5/10 Target Visit 6 Progress Not Met PT Goal 2 Goal Centralization of symptoms to the low back Target Visit 6 Progress Not Met Comment 06-17-23 progress not met NEW GOALS 1* pain rating at worst of 7/10 2* radicular pain to L knee at worst 3* Oswestry self assessment rating of 24% limitation in activity 4* pt report with sleeping, awaken from pain 2x/ night PT Problem 3 PT Problem #3 Impaired Strength PT Goal 1 Goal able to do 10 reps of bridges without increased low back pain. Target Visit 6 Progress Met PT Goal 2 Goal Increase RACHEL hips to 4+/5 Target Visit 13 Progress Partially Met Comment met for flexion and adduction, but not abduction or extension 06-17-23 progress goal not met, continue to increase trunk and LE strength 4+/5 PT Problem 4 PT Problem #4 Impaired Flexibility PT Goal 1 Goal 06-17-23 progress 1* increase L anterior hip/quad flexibility to decrease pull on iliac crest/back with prone knee
--- NOTE | 2023-06-17 13:17 | PTOPPROG ---
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; want to continue therapy, to get stronger and get ready for knee surgery--talking to dr about knee replacement; PAIN: range range of L knee in the past week - 06/24, burning and stabs increase pain with stairs decrease pain heat, vibrating pad also have burning pain at bottom of both feet- all time--neuropathy Low back pain: range past week 5-03/24, L low back, into hip and knee; with sleeping, awaken 3-4x/night due to back pain have sciatica and arthritis of knee Assessment PT Clinical Summary Gail has received 11 PT sessions from February 25 to May 23; she then rescheduled her reevaluation for today. Reports doing all of her home and work tasks, with more pain in back and L knee. Compared to the last progress report: pain rating is the same at -06/24; Self assessment Oswestry score of 32% limitation in activity level; increase in strength with mat exercises; education for home exercises. Progress has been limited to the extended time frame of the treatments. The goals were partially achieved. Continue PT 1-2x/wk for 4 weeks, to further increase trunk and LE strength, modalities for pain control and progression of her HEP. Plan of Care Interventions Electrical Stimulation,Hot Pack/Cold Pack,Manual Therapy,Mechanical Traction,Neuro Re-education, Patient Education,Therapeutic Activities, Therapeutic Exercise,Ultrasound,Other Other Interventions taping, IASTM PT Services Indicated Yes Treatment Frequency and 1-2x/wk for 4 weeks Duration These treatments will address the objective and functional deficits as defined above. The patient will be advanced safely and appropriately in order for the patient to progress towards his/her prior level of function. Additional exercises will be introduced and as well as a compre
--- NOTE | 2023-06-17 13:19 | PCPTNOTE ---
This treatment is being continued from visit number [id number]. Please see documentation on both accounts to view progress. Completed interventions, outcomes, and problems have been marked as Inactive to facilitate the copying of the Care plan routine for recurring accounts.
--- NOTE | 2023-07-22 13:22 | PTOPDC ---
Assessment and note entered by Antoinette Carballo, PT Evaluation Information Assessment Status Discharge Diagnosis Pain in L knee, radiculopathy Lumbar region Onset 2 plus years for the knee, 4-5 months for the back Subjective Information back is getting better- not hurt as much when working; when turn too fast, knee hurts and feel like going to fall; is going to hold off on the TKR as long as she is able to; goes to the fitness center: walk 1 mile, resisted weight equipment hip abduction, knee extension, standing squat, pec, leg press; does not have any questions about her home exercises. agrees to discharge from PT. Reported Pain Level Pain Score Self Report Additional Pain Score Comments pain in back been staying at 5/10; stairs increase knee pain; just ignore the pain with working; L knee pain over knee cap--not radicular from back with sleeping, pain awakens her 5-6x/night; heat helps her back pain; Assessment PT Clinical Summary Gail has received 15 PT sessions. Compared to the last progress report: pain rating has decreased in L knee from 5-10/10 to 5/10 and in back from 5-7/10 to 5/10; reported sleeping tolerance is worse, from awakening 3-4 x/night to 5-6 x/night due to pain; anterior hip/quad length with prone knee flexion is the same at 110'; increase strength of trunk and hips with exercises education completed for HEP and posture/body mechanics. The goals were partially met. Discharge PT services; she is to continue with her home exercises and fitness activities at the gym- -water and land exercises. Plan of Care PT Services Indicated No
== END 2023-07-23 14:13 | disposition home or self-care (01) ==
LOC: ANHPT 12:30
PROVIDERS: PCP Nurse Practitioner Family; Visit Provider Nurse Practitioner Family
DX: M25.562 Pain in left knee (principal); M54.16 Radiculopathy, lumbar region
CPT/HCPCS: 97014; 97110; 97530; 99199; G0283

== ENCOUNTER 2023-08-11 13:48 | Outpatient (CLI) | payer OTHER, SELFPAY ==
[2023-08-11 14:19] LABS: Hemoglobin A1C 5.8 % (<5.7)
== END 2023-08-11 13:49 | disposition home or self-care (01) ==
LOC: ANHLAB 13:51
PROVIDERS: PCP Nurse Practitioner Family; Visit Provider Nurse Practitioner Family
DX: R73.01 Impaired fasting glucose (principal); G47.30 Sleep apnea, unspecified
CPT/HCPCS: 36415; 83036

== ENCOUNTER 2023-08-12 14:43 | Outpatient (CLI) | payer OTHER, SELFPAY ==
--- NOTE | ~2023-08-12 | XR_ITS ---
Lumbosacral Spine: AP, oblique, and lateral views, with neutral, flexion, and extension positioning Clinical History: Pain COMPARISON: 03/04/2021 Findings: The normal lordotic curve is maintained. The vertebral bodies and posterior elements are i ntact. No instability evident on flexion or extension. The intervertebral disc spaces are preserved. There is moderate facet arthropathy throughout the lumbar spine. The sacroiliac joints are normally o utlined. Impression: Moderate facet arthropathy throughout the lumbar spine. No fracture, subluxation, or instability evident. Reviewed, dictated and finalized at location . [employer] Impression: Moderate facet arthropathy throughout the lumbar spine. No fracture, subluxation, or instability evident.
--- NOTE | ~2023-08-12 | XR_ITS ---
XR hip BI 2V w AP pelvis 08/12/2023 15:04 Indication: Bilateral hip pain Procedure: AP pelvis and 2 views each hip Comparison: 03/12/2021 Findings: Pelvic rings are intact. No fracture or traumatic malalignment. Sacral foramen are symmetri c. No significant soft tissue abnormality. Impression: 1: No acute bone or joint abnormality. Reviewed, dictated and finalized at location L. [employer] Impression: 1: No acute bone or joint abnormality.
== END 2023-08-12 14:44 ==
PROVIDERS: PCP Family Medicine; Visit Provider Anesthesiology Pain Medicine
DX: M25.551 Pain in right hip (principal); M25.552 Pain in left hip; M54.50 Low back pain, unspecified
CPT/HCPCS: 72114; 73521

== ENCOUNTER 2023-12-11 07:22 | Outpatient (CLI) | payer OTHER, SELFPAY ==
[2023-12-11 08:58] LABS: Hematocrit 43.6 % (37.0-47.0); Hemoglobin 13.5 g/dL (12.0-15.0); Mean Corpuscular Hemoglobin 25.2 pg (26-34); Mean Corpuscular Volume 81.5 fl (80-100); Mean Platelet Volume 10.1 fl (7.4-10.4); Platelet Count Result 270 k/mm3 (150-375); Red Blood Count 5.35 M/mm3 (4.2-5.4); Red Cell Distribution Width 13.8 % (11.5-14.5); White Blood Count 4.6 K/mm3 (4.5-10.0)
[2023-12-11 09:24] LABS: Alanine Aminotransferase 17 U/L (6-35); Albumin Level 4.5 g/dL (3.5-5.1); Alkaline Phosphatase 118 U/L (38-126); Anion Gap 8 mmol/L (4-12); Aspartate Amino Transferase 31 U/L (14-36); Bilirubin,Total 0.6 mg/dL (0.2-1.3); Blood Urea Nitrogen 17 mg/dL (7-17); Calcium 9.8 mg/dL (8.4-10.2); Carbon Dioxide 29 mmol/L (22-30); Chloride 102 mmol/L (98-107); Cholesterol 197 mg/dL (0-200); Estimated Glomerular Filt Rate > 60; Glucose 96 mg/dL (65-110); HDL Direct 78 mg/dL; Sodium 139 mmol/L (137-145); Triglycerides 65 mg/dL (<150)
[2023-12-11 09:35] LABS: LDL Cholesterol Direct 87 mg/dL
[2023-12-11 10:08] LABS: Free T4 Free Thyroxine 0.81 ng/mL (0.78-2.19)
[2023-12-11 12:49] LABS: Hemoglobin A1C 6.2 % (<5.7)
== END 2023-12-11 07:23 | disposition home or self-care (01) ==
PROVIDERS: PCP Family Medicine
DX: Z00.00 Encounter for general adult medical examination without abnormal findings (principal); R53.83 Other fatigue
CPT/HCPCS: 36415; 80053; 80061; 83036; 84439; 84443; 85027

== ENCOUNTER 2024-01-13 13:55 | Outpatient (CLI) | payer OTHER, SELFPAY ==
--- NOTE | ~2024-01-13 | MM_ITS ---
EXAMINATION: MM screening mary BI w obed HISTORY: Screening mammogram TECHNIQUE: Craniocaudal and mediolateral oblique 3-D tomosynthesis images were obtained and synthetic 2-D images were generated. CAD analysis was submitted and interpreted. COMPARISON: January 07, 2023, November 15, 2021, October 13, 2020 bilateral screening mammogram examination s BREAST PARENCHYMAL COMPOSITION: There are scattered areas of fibroglandular density. FINDINGS: There is no evidence of suspicious mass, calcification, or architectural distortion to sugg est malignancy in either breast. There has been no suspicious interval change. IMPRESSION: 1. No mammographic evidence of malignancy. 2. Recommend routine screening mammography in one year. BI-RADS Category 1: Negative Reviewed, dictated and finalized at location A.
== END 2024-01-13 13:56 | disposition home or self-care (01) ==
PROVIDERS: PCP Family Medicine; Visit Provider Nurse Practitioner Family
DX: Z12.31 Encounter for screening mammogram for malignant neoplasm of breast (principal)
CPT/HCPCS: 77063; 77067

== ENCOUNTER 2024-03-02 10:27 | Outpatient (CLI) | payer OTHER, SELFPAY ==
--- NOTE | ~2024-03-02 | CT_ITS ---
EXAMINATION: CT cervical spine wo con DATE: 03/02/2024 11:06 INDICATION: Neck pain. Headache. TECHNIQUE: Computed tomography (CT) of the cervical spine was performed without intravenous contrast. Automated exposure control and iterative reconstruction technique were employed. The dose-length pro duct was 139.83 mGy-cm. COMPARISON: None FINDINGS: There is 4 degrees levocurvature of cervical spine. There is kyphosis of cervical spine. Ve rtebral body heights are normal. There is severely decreased disc height from C3-C4 through C6-C7. Th e following disc levels are specifically discussed: C2-C3: There is mild bilateral uncovertebral joint osteoarthritis. There is severe bilateral facet jessica int osteoarthritis. There is mild bilateral neural foraminal stenosis. There is no central canal sten osis. C3-C4: There is severe right and moderate left uncovertebral joint osteoarthritis. There is severe ri ght and mild left facet joint osteoarthritis. There is moderate right neural foraminal stenosis. Ther e is mild central canal stenosis. C4-C5: There is severe bilateral uncovertebral joint osteoarthritis. There is severe bilateral facet joint osteoarthritis. There is mild bilateral neural foraminal stenosis. There is mild central canal stenosis. C5-C6: There is severe bilateral uncovertebral joint osteoarthritis. There is mild bilateral facet jessica int osteoarthritis. There is mild bilateral neural foraminal stenosis. There is mild central canal st enosis. C6-C7: There is severe bilateral uncovertebral joint osteoarthritis. There is severe bilateral facet joint osteoarthritis. There is mild bilateral neural foraminal stenosis. There is mild central canal stenosis. C7-T1: There is no uncovertebral joint osteoarthritis. There is severe bilateral facet joint osteoart hritis. There is mild bilateral neural foraminal stenosis. There is no central canal stenosis. IMPRESSION: 1. Severe cervical spondylosis. Reviewed, dictated and finalized at location A.
--- NOTE | ~2024-03-02 | CT_ITS ---
EXAMINATION: CT brain wo con DATE: 03/02/2024 11:06 INDICATION: Headache, unspecified. TECHNIQUE: Computed tomography (CT) of the head was performed without intravenous contrast. The mA wa s adjusted according to patient size. Iterative reconstruction technique was employed. The dose-lengt h product was 599.57 mGy-cm. COMPARISON: None FINDINGS: There is no intracranial hemorrhage, acute infarction, or abnormal intracranial mass lesion . There are scattered areas of low attenuation in the cerebral white matter, which is within normal l imits for the patient's age. The ventricles are normal in size. The paranasal sinuses are clear. The mastoid air cells are normal. The orbits are normal. IMPRESSION: 1. Normal aging brain. Reviewed, dictated and finalized at location E. IMPRESSION: 1. Normal aging brain.
== END 2024-03-02 10:28 ==
LOC: MICIMG 10:28
PROVIDERS: PCP Nurse Practitioner Family; Visit Provider Nurse Practitioner Family
DX: G89.29 Other chronic pain (principal); M54.2 Cervicalgia; R51.9 Headache, unspecified; M43.02 Spondylolysis, cervical region
CPT/HCPCS: 70450; 72125

== ENCOUNTER 2024-03-22 19:30 | Emergency (ER) | payer OTHER, SELFPAY ==
--- NOTE | ~2024-03-22 | XR_ITS ---
EXAMINATION: XR chest 2V DATE: 03/22/2024 19:48 INDICATION: Chest pain. Shortness of breath. TECHNIQUE: Frontal and lateral views of the chest were obtained. COMPARISON: Chest 2 views 12/01/2019 FINDINGS: There is no pneumonia, pleural effusion, or pneumothorax. The heart size is normal. There i s mild chronic anterior wedging of multiple vertebral bodies. IMPRESSION: 1. No acute cardiopulmonary disease. Reviewed, dictated and finalized at location E.
--- NOTE | 2024-03-22 19:31 | ECG_ITS ---
Test Date: 2024-03-22 19:35:46 Measurements Intervals [place] Rate: 113 P: 77 CO: 136 QRS: 69 QRSD: 73 T: 59 QT: 292 QTc: 401 Interpretive Statements SINUS TACHYCARDIA POSSIBLE LEFT ATRIAL ENLARGEMENT ABNORMAL ECG No previous ECG available for comparison Electronically Signed On 03-23-2024 06:08:24 CDT by Mohsen Verdin D.O.
[2024-03-22 19:35] VITALS: BP 136/74; PULSE 110; RESP 18; TEMP 36.3; O2SAT 100
[2024-03-22 20:41] LABS: Basophils Percent Auto 0.8 % (0.2-1.2); Eosinophils Absolute Auto 0.2 K/mm3 (0-0.3); Eosinophils Percent Auto 6.1 % (0-4.4); Hematocrit 35.2 % (37.0-47.0); Hemoglobin 11.1 g/dL (12.0-15.0); Lymphocytes Percent Auto 35.4 % (18.3-44.2); Mean Corpuscular HGB Conc 31.5 g/dl (32-36); Mean Corpuscular Hemoglobin 25.7 pg (26-34); Mean Corpuscular Volume 81.5 fl (80-100); Mean Platelet Volume 9.4 fl (7.4-10.4); Monocytes Absolute Auto 0.6 K/mm3 (0.1-0.6); Monocytes Percent Auto 13.9 % (2.6-8.5); Neutrophils Absolute Auto 1.7 K/mm3 (1.3-6.7); Neutrophils Percent Auto 43.8 % (45.5-73.1); Platelet Count Result 248 k/mm3 (150-375); Red Blood Count 4.32 M/mm3 (4.2-5.4); Red Cell Distribution Width 12.6 % (11.5-14.5)
[2024-03-22 20:50] LABS: INR 1.1; Partial Thromboplastin Time 27.6 Seconds (22.3-36.8); Prothrombin Time 14.9 Seconds (11.1-14.7)
[2024-03-22 20:54] LABS: Alanine Aminotransferase 35 U/L (6-35); Albumin Level 4.1 g/dL (3.5-5.1); Alkaline Phosphatase 84 U/L (38-126); Anion Gap 9 mmol/L (4-12); Aspartate Amino Transferase 44 U/L (14-36); Bilirubin,Total 0.4 mg/dL (0.2-1.3); Blood Urea Nitrogen 23 mg/dL (7-17); Calcium 9.9 mg/dL (8.4-10.2); Carbon Dioxide 31 mmol/L (22-30); Chloride 102 mmol/L (98-107); Estimated CRCL calculation 51 ml/min; Estimated Glomerular Filt Rate > 60; Glucose 100 mg/dL (65-110); Lipase 45 U/L (23-300); Sodium 142 mmol/L (137-145)
[2024-03-22 21:06] LABS: Troponin I < 0.012 ng/mL (0.000-0.034)
[2024-03-23 00:09] LABS: Troponin I < 0.012 ng/mL (0.000-0.034)
[2024-03-23 00:45] VITALS: BP 125/82; PULSE 110; RESP 14; O2SAT 98
[2024-03-23] MEDS: SODIUM CHLORIDE 0.9% IV 1,000 ML 999 ML IV CONT (00:53)
--- NOTE | 2024-03-23 00:53 | ED.CHESTPAIN ---
HPI - Chest Pain General Chief Complaint: Chest Pain Stated Complaint: chest pain Time Seen by Provider: 03/23/24 00:30 History of Present Illness HPI narrative: Patient is a 66-year-old female who presents to the emergency department this evening complaining of chest pain for the past week. Patient states that it feels as a sharp burning pain in her mid epigastric region radiating up her chest. Patient admits that she does have a history of acid reflux and takes omeprazole for it daily but states that this feels different. Denies any history of cardiovascular disease. Patient states that she had 1 episode of a fluttering sensation in her chest which felt like a palpitation but only had 1 episode denies any recurrence of this episode. Patient states that while waiting in the emergency department her chest pain did subside. She denies any nausea or vomiting. Patient states that pressing on her chest reproduces the pain. No additional symptoms or concerns at this time. Denies any fevers or chills at home. Related Data Home Medications Medication Instructions Recorded Confirmed albuterol sulfate 2.5 mg/3 mL 2.5 mg inhalation Q6H 08/31/19 03/11/24 (0.083 %) solution for nebulization Allergies Allergy/AdvReac Type Severity Reaction Status Date / Time peanut Allergy Severe ASTHMA Verified 03/22/24 19:39 ATTACK ibuprofen Allergy Unknown lips swell Verified 03/22/24 19:39 NSAIDS (Non-Steroidal Allergy Swelling Verified 03/22/24 19:39 Anti-Inflamma of Lip/Tongue/Throat FISH Allergy Severe ASTHMA Uncoded 02/17/24 10:36 ATTACK NAPROXEN SODIUM Allergy Unknown lips swell Uncoded 02/17/24 10:36 Review of Systems Review of Systems: All systems are reviewed and are negative unless stated otherwise in the HPI. [facility] Past Medical History Medical History Asthma Chronic rhinitis Cubital tunnel syndrome on right GERD (gastroesophageal reflux disease) Osteoarthritis Tear meniscus knee Vitamin D deficiency Surgical History Surgical History Hx of arthroscopy of right knee Family History Family History Father Cerebrovascular accident Sibling Family history of congestive heart failure Other Congestive heart failure (CHF) Father Cerebrovascular accident Mother No problems noted. Mother Bowel obstruction Sibling Congestive heart failure (CHF) Other Family history of arthritis Social History Social History Smoking status: Former smoker Alcohol intake: never Substance use: never Substance use type: does not use Lack of Transportation: No Lack of Food: Never True Current Housing: I Have Housing Concerned About Future Housing: No Difficulty Paying Gas/Electric Bills: No Difficulty Paying for Meds: No Currently Unemployed: No Education: Trade/Vocational Certificate Difficulty w/ Childcare or Family Care: No Gender identity (if verbalized by the patient): Female Exam Narrative: General: Alert, awake, afebrile, in no acute distress. HEENT: PERRL, no rhinorrhea, no post nasal drip, oropharynx clear. Cardiovascular: Regular rate and rhythm, no murmurs, rubs or gallops, no peripheral edema, reproducible chest wall pain. Respiratory: Clear to auscultation bilaterally, no tachypnea, no wheezing, no rhonchi, no rubs, no respiratory distress. Abdomen: Soft, nontender, nondistended, no rebound, no guarding, no peritoneal signs. Musculoskeletal: No joint swelling or deformity, normal muscle tone. Skin: No rashes or petechia, no signs of infection. Neurological: Alert and oriented to person, place, and time. Follows all commands. No focal deficits, speech is clear and fluent. Course Vital Signs Vital signs
[2024-03-23 02:30] VITALS: BP 114/75; PULSE 73; RESP 23; O2SAT 98
== END 2024-03-23 02:45 | disposition home or self-care (01) ==
PROVIDERS: Emergency Medicine; Emergency Provider Emergency Medicine; PCP Nurse Practitioner Family
DX: R07.89 Other chest pain (principal); R00.2 Palpitations; J45.909 Unspecified asthma, uncomplicated; K21.9 Gastro-esophageal reflux disease without esophagitis; M19.90 Unspecified osteoarthritis, unspecified site
CPT/HCPCS: 36415; 71046; 80053; 83690; 84484; 85025; 85610; 85730; 93005; 96360; 99284; J7030

== ENCOUNTER 2024-06-01 14:00 | Outpatient (RCR) | payer OTHER, SELFPAY ==
--- NOTE | 2024-03-09 16:31 | OPREHPOC ---
Outpatient Therapy Plan of Care This is a Multidisciplinary Plan of Care that may contain components documented by all disciplines (PT, OT, and ST.) PT Problem 1 PT Problem #1 Knowledge Deficit PT Goal 1 Goal *indep with HEP * correct position with exercises Target Visit 8 PT Problem 2 PT Problem #2 Pain PT Goal 1 Goal 1* pain rating at worst of 5/10 2* Neck Disability Index rating of 34% limitation in activity level 3* pt report with sleeping, awaken 3x/night due to neck pain Target Visit 8 PT Problem 3 PT Problem #3 Impaired Range of Motion PT Goal 1 Goal increase cervical ROM to improve ability to drive and work active sitting ROM: 1* rotation R 45' 2* rotation L 45' Target Visit 8 PT Problem 4 PT Problem #4 Impaired Strength PT Goal 1 Goal increase cervical- scapular strength to improve posture of neck 1* pt perform 20 reps of strengthening exercises in supine and standing positions Target Visit 8
--- NOTE | 2024-03-09 16:31 | PTOPEVAL1 ---
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 Gradual increase in her neck pain with headaches. Her CT report states severe cervical spondylosis. 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 Self assessment with the Neck Disability Index rating of 42% limitation in activity level. With the evaluation, she has decreased cervical rotation to R and L and pain increases with all cervical motions; moderate spasms through out R and L cervical and thoracic- upper traps areas; poor posture of neck and shoulders. Skilled PT services are indicated for modalities to decrease pain and spasms, therapeutic exercises to increase flexibility and strength over cervical and thoracic areas, with education for HEP and posture correction. Plan of Care Interventions Electrical Stimulation,Hot Pack/Cold Pack,Manual Therapy,Mechanical Traction,Neuro Re-education, Patient/Caregiver Educati,Therapeutic Activities, Therap
--- NOTE | 2024-04-13 14:23 | PCPTNOTE ---
Pt canceled visit today due to a family emergency.
--- NOTE | 2024-05-04 14:50 | OPREHPOC ---
Outpatient Therapy Plan of Care This is a Multidisciplinary Plan of Care that may contain components documented by all disciplines (PT, OT, and ST.) PT Problem 1 PT Problem #1 Knowledge Deficit PT Goal 1 Goal / Goal Update *indep with HEP * correct position with exercises Target Visit 8 Progress Partially Met PT Goal 2 Goal / Goal Update 05-04-24 progress goal met for HEP continue towards goals Target Visit 13 PT Problem 2 PT Problem #2 Pain PT Goal 1 Goal / Goal Update 1* pain rating at worst of 5/10 2* Neck Disability Index rating of 34% limitation in activity level 3* pt report with sleeping, awaken 3x/night due to neck pain Target Visit 8 Progress Not Met PT Goal 2 Goal / Goal Update 05-04-24 progress goal not met; improved with #2 to 38% and #3 to 3-4x/night continue towards goals Target Visit 13 PT Problem 3 PT Problem #3 Impaired Range of Motion PT Goal 1 Goal / Goal Update increase cervical ROM to improve ability to drive and work active sitting ROM: 1* rotation R 45' 2* rotation L 45' Target Visit 8 Progress Not Met PT Goal 2 Goal / Goal Update 05-04-24 progress goals not met improved with #2 to 40' Target Visit 13 PT Problem 4 PT Problem #4 Impaired Strength PT Goal 1 Goal / Goal Update increase cervical- scapular strength to improve posture of neck 1* pt perform 20 reps of strengthening exercises in supine and standing positions Target Visit 8 Progress Not Met PT Goal 2 Goal / Goal Update 05-04-24 progress
--- NOTE | 2024-05-04 14:50 | PTOPPROG ---
Assessment and note entered by Antoinette Carballo, PT PROGRESS REPORT Assessment Status Progress Diagnosis cervicalgia Onset Oct 2023 Subjective Information some days are good and some days are back at square 1; therapy is helping, after therapy, is good the rest of the day; have tried to change how I sleep but is not working, cannot get a comfortable pillow for my neck; therapy is helping, want to continue; will call dr and get an appointment. Assessment PT Clinical Summary Gail has received 7 PT sessions. Compared to the initial evaluation: pain rating from6-8/10 to 6- over 06/24; with sleeping, awaken due to pain 5 to 3-4 x/night; headaches continue to occur every day; self assessment functional score with Neck Disability Index rating of 42 to 38% limitation in activity level; cervical rotation to R 35' and L 40'- both increase pain; active shoulder motions do not increase pain; education for HEP and posture correction. The goals were partially met. Continue PT for further reduction in pain. She is to follow up with her medical provider. Plan of Care Interventions Electrical Stimulation,Hot Pack/Cold Pack,Manual Therapy,Mechanical Traction,Patient/Caregiver Education,Therapeutic Activities,Therapeutic Exercise,Ultrasound,Other Other Interventions taping, IASTM PT Services Indicated Yes Treatment Frequency and 1-2x/wk for 6 visits Duration These treatments will address the objective and functional deficits as defined above. The patient will be advanced safely and appropriately in order for the patient to progress towards his/her prior level of function. Additional exercises will be introduced and as well as a comprehensive home exercise program upon discharge, if needed, ?to ensure carryover of functional gains achieved in the clinic. This treatment plan has been reviewed and agreement upon by the patient.
--- NOTE | 2024-06-03 13:00 | PCPTNOTE ---
This treatment is being continued on visit number [id number]. Please see documentation on both accounts to view progress. Completed interventions, outcomes, and problems have been marked as Inactive to facilitate the copying of the Care plan routine for recurring accounts.
== END 2024-06-02 08:36 | disposition home or self-care (01) ==
LOC: ANHPT 14:00
PROVIDERS: PCP Nurse Practitioner Family; Visit Provider Nurse Practitioner Family
DX: M54.2 Cervicalgia (principal); R51.9 Headache, unspecified; G89.29 Other chronic pain
CPT/HCPCS: 97012; 97014; 97110; 97140; 97161; G0283

== ENCOUNTER 2024-06-29 14:30 | Outpatient (RCR) | payer OTHER, SELFPAY ==
--- NOTE | 2024-06-03 13:01 | PCPTNOTE ---
This treatment is being continued from visit number [id number]. Please see documentation on both accounts to view progress. Completed interventions, outcomes, and problems have been marked as Inactive to facilitate the copying of the Care plan routine for recurring accounts.
--- NOTE | 2024-06-08 14:31 | PCPTNOTE ---
Called and canceled , pt ill. AKS
--- NOTE | 2024-06-29 15:00 | PTOPDC ---
Assessment and note entered by Antoinette Carballo, PT Discharge Report Assessment Status Discharge Diagnosis cervicalgia Onset Oct 2023 Subjective Information neck has improved-- able to sleep better and longer; been doing the exercises; the traction on my neck helps; bought a pump up traction thing and used 3 x so far; Reported Pain Level Pain Score Self Report Additional Pain Score Comments pain range of 3-9/10 in the past week; awaken from sleeping 3-4x/night due to neck pain and readjust neck and problems going back to sleep increase pain: pushing beds down hallways at work decrease pain: rest, massage, home traction balloon thing, tylenol Assessment PT Clinical Summary Gail has received 12 PT sessions, from March 03 to today. Compared to the last reevaluation: pain from 6-10/10 to 3-9/10; continues to have headaches daily; sleep is disrupted due to neck pain is same at 3-4 /10; slight increase in cervical ROM: rotation to R and L, continues to have pain with cervical rotation motions; Education completed for HEP and posture correction She has info for home cervical traction unit. The goals were partially met. Discharge PT. She is to continue with HEP and pain management techniques. Plan of Care PT Services Indicated No
== END 2024-06-30 09:25 | disposition home or self-care (01) ==
LOC: ANHPT 14:30
PROVIDERS: PCP Nurse Practitioner Family; Visit Provider Nurse Practitioner Family
DX: M54.2 Cervicalgia (principal); R51.9 Headache, unspecified; G89.29 Other chronic pain
CPT/HCPCS: 97012; 97110; 97530

== ENCOUNTER 2024-08-20 07:30 | Outpatient (CLI) | payer OTHER, SELFPAY ==
[2024-08-20 08:12] LABS: Basophils Absolute Auto 0.1 K/mm3 (0.0-0.1); Basophils Percent Auto 1.2 % (0.2-1.2); Eosinophils Absolute Auto 0.3 K/mm3 (0-0.3); Eosinophils Percent Auto 6.1 % (0-4.4); Hematocrit 37.7 % (37.0-47.0); Hemoglobin 11.4 g/dL (12.0-15.0); Immature Granulocyte Absolute 0.01 K/mm3 (0.00-0.031); Immature Granulocyte Percent A 0.2 % (0-0.5); Lymphocytes Percent Auto 37.3 % (18.3-44.2); Mean Corpuscular HGB Conc 30.2 g/dl (32-36); Mean Corpuscular Hemoglobin 23.8 pg (26-34); Mean Corpuscular Volume 78.7 fl (80-100); Monocytes Absolute Auto 0.4 K/mm3 (0.1-0.6); Monocytes Percent Auto 7.6 % (2.6-8.5); Neutrophils Absolute Auto 2.4 K/mm3 (1.3-6.7); Neutrophils Percent Auto 47.6 % (45.5-73.1); Platelet Count Result 338 k/mm3 (150-375); Red Blood Count 4.79 M/mm3 (4.2-5.4); Red Cell Distribution Width 16.1 % (11.5-14.5); White Blood Count 5.1 K/mm3 (4.5-10.0)
[2024-08-20 08:24] LABS: Alanine Aminotransferase 18 U/L (6-35); Albumin Level 4.3 g/dL (3.5-5.1); Alkaline Phosphatase 131 U/L (38-126); Anion Gap 6 mmol/L (4-12); Aspartate Amino Transferase 33 U/L (14-36); Bilirubin,Total 0.6 mg/dL (0.2-1.3); Blood Urea Nitrogen 19 mg/dL (7-17); Calcium 9.4 mg/dL (8.4-10.2); Carbon Dioxide 27 mmol/L (22-30); Chloride 108 mmol/L (98-107); Cholesterol 185 mg/dL (0-200); Estimated Glomerular Filt Rate > 60; Glucose 98 mg/dL (65-110); HDL Direct 82 mg/dL; Potassium 4.5 mmol/L (3.4-5.0); Sodium 141 mmol/L (137-145); Triglycerides 62 mg/dL (<150)
[2024-08-20 08:35] LABS: LDL Cholesterol Direct 76 mg/dL
[2024-08-20 08:54] LABS: Thyroid Stimulating Hormone 0.039 uIU/mL (0.465-4.680)
[2024-08-20 09:16] LABS: Iron 88 ug/dL (37-170)
[2024-08-20 09:25] LABS: Percent Iron Saturation 29 % (20-50)
[2024-08-20 09:35] LABS: Free T4 Free Thyroxine 0.91 ng/dL (0.78-2.19)
[2024-08-20 10:29] LABS: Hemoglobin A1C 6.1 % (<5.7)
[2024-08-20 11:55] LABS: Vitamin D 25 Hydroxy 35.7 ng/mL
== END 2024-08-20 07:31 | disposition home or self-care (01) ==
LOC: ANHLAB 07:32
PROVIDERS: PCP Nurse Practitioner Family; Visit Provider Nurse Practitioner Family
DX: E55.9 Vitamin D deficiency, unspecified (principal); I10 Essential (primary) hypertension; R73.01 Impaired fasting glucose; N18.30 Chronic kidney disease, stage 3 unspecified; M54.9 Dorsalgia, unspecified; R60.9 Edema, unspecified; R53.83 Other fatigue; R79.89 Other specified abnormal findings of blood chemistry; Z79.899 Other long term (current) drug therapy
CPT/HCPCS: 36415; 80053; 80061; 82306; 83036; 83540; 83550; 84439; 84443; 85025

== ENCOUNTER 2025-02-10 08:24 | Outpatient (CLI) | payer OTHER, SELFPAY ==
--- NOTE | ~2025-02-10 | MM_ITS ---
EXAMINATION: MM screening mary BI w obed HISTORY: Screening TECHNIQUE: Craniocaudal and mediolateral oblique 3-D tomosynthesis images were obtained and synthetic 2-D images were generated. CAD analysis was submitted and interpreted. COMPARISON: Comparison to multiple prior studies sequentially, with oldest reviewed study dated 09/27. BREAST PARENCHYMAL COMPOSITION: Not dense: There are scattered areas of fibroglandular density. FINDINGS: There is no evidence of suspicious mass, calcification, or architectural distortion to sugg est malignancy in either breast. There has been no suspicious interval change. IMPRESSION: 1. No mammographic evidence of malignancy. 2. Recommend routine screening mammography in one year. BI-RADS Category 1: Negative Reviewed, dictated and finalized at location A.
--- OUTSIDE RECORDS SUMMARY | 2025-02-10 08:31 | XMS_ITS | Encounter Summary ---
Author Organization [facility] Address [address] [place] [address] Care Team Providers Care Construction Controller Name Role Phone Unavailable Primary Care Provider Unavailabl e Prior Encounters Date Type Department Care Team Description 10/04/2019 Converted CPS Chart Documents [facility] [address] [place] [address] <No scans attached> 10/04/2019 Converted 13x Documents [facility] [address] [place] [address] <No scans attached> Plan of Treatment Not on file Procedures Procedure Name Priority Date/Time Associated Diagnosis Comments 20 MO AMALGAM 2 SURFACE Routine 02/03/20 20 2:00 AM CDT 5 MO AMALGAM 2 SURFACE Routine 0 2:00 AM CDT 4 MO AMALGAM 2 SURFACE Routine 0 2:00 AM CDT 2 LO AMALGAM 2 SURFACE Routine 0 2:00 AM CDT 13 RETAINER CROWN - ZIRCONIA IN OFFICE - POST Routine 02/03/2020 2:00 AM CDT 11 RETAINER CROWN - ZIRCONIA IN OFFICE - POST Routine 02/03/2020 2:00 AM CDT 12 PONTIC - ZIRCONIA IN OFFICE - POST Routine 02/03/2020 2:00 AM CDT 10 ENDODONTIC THERAPY, ANTERIOR TOOTH (EXCLUDING FINAL YAZIDISM) Routine 02/03/2020 2:00 AM CDT 15 DOBL ONLAY PORCELAIN 4 LAUGHLIN Routine 02/03/2020 2:00 AM CDT 10 CROWN PFG ANT Routine 02/03/2020 2:00 AM CDT ORAL HYGIENE INSTRUCTIONS Routine 2019 2:00 AM CDT PROPHYLAXIS - ADULT Routine 02/03/2020 2 :00 AM CDT COMPREHENSIVE ORAL EVALUATION - NEW OR ESTABLISHED PATIENT Routine 02/03/2020 2:00 AM CDT INTRAORAL - COMPREHENSIVE SERIES OF RADIOGRAPHIC IMAGES Routine 02/03/2020 2:00 AM CDT INTRAORAL PHOTO Routine 02/03/2020 2:00 AM CDT INTRAORAL PHOTO Routine 02/03/2020 2:00 AM CDT INTRAORAL PHOTO Routine 02/03/2020 2:00 AM CDT INTRAORAL PHOTO Routine 02/03/2020 2:00 AM CDT 28 B COMPOSITE FILLING Routine 0 2:00 AM CDT 7 DL COMPOSITE FILLING Routine 0 2:00 AM CDT 6 ML COMPOSITE FILLING Routine 0 2:00 AM CDT 29 EXTRACTION, ERUPTED TOOTH OR EXPOSED ROOT (ELEVATION AND/OR FORCEPS REMOVAL) Routine 01/25/2020 2:00 AM CDT 29 LIMITED ORAL EVALUATION - PROBLEM FOCUSED Routine 01/18/2020 2:00 AM CDT PANORAMIC RADIOGRAPHIC IMAGE Routine 01/18/2020 2:00 AM CDT ADDITIONAL X-RAY Routine 01/18/2020 2:00 AM CDT SINGLE X-RAY Routine 01/18/2020 2:00 AM CDT Visit Diagnoses Not on file
--- OUTSIDE RECORDS SUMMARY | 2025-02-10 08:31 | XMS_ITS | Clinical Summary ---
Author Organization [facility] Address [address] [place] [address] Care Team Providers Care Director Of Surgery Name Role Phone Unavailable Primary Care Provider Unavailabl e Social History Tobacco Use Types Packs/Day Years Used Date Smoking Tobacco: Never Assessed Comments Unknown Sex and Gender Information Value Date Recorded Sex Assigned at Not on file Legal Sex Female 9:07 PM PDT Gender Identity Not on file Sexual Orientation Not on file Plan of Treatment Not on file
--- OUTSIDE RECORDS SUMMARY | 2025-02-10 08:31 | XMS_ITS | Continuity of Care Document ---
Author Organization [facility] Address [address] [facility] [place] [address] Phone Care Team Providers Care Hip Hop Dancer Name Role Phone Jamie Crow MD Unavailable Unavailable Allergies, Adverse Reactions, Alerts Substance Reaction Status Criticality ibuprofen Active No Information aspirin Active No Information Medications Medication Instructions Dosage Effective Dates (start - stop) Status Comments Vitamin D2 50,000 unit capsule take 1 capsule ([id number]) by oral route every week - Active ProAir HFA 90 mcg/actuation Aerosol Inhaler inhale 2 puff by inhalation route every 4 - 6 hours as needed - Active Symbicort 160 mcg-4.5 mcg/actuation HFA Aerosol Inhaler inhale 2 puff by inhalation route 2 times every day in the morning and evening 2.00 puff - Active Plavix 75 mg tablet take 1 tablet (75MG) by oral route every day 75 MG - Active potassium chloride ER 20 mEq tablet,extended release(part/cryst) take 1 tablet (20MEQ) by oral route every day with food 20 MEQ - Active Lasix 20 mg tablet take 1 tablet (20MG) by oral route 2 times every day 20 MG - Active lisinopril 40 mg tablet take 1 tablet (40MG) by oral route every day 40 MG - Active Procedures Procedure Date OFFICE/OUTPATIENT VISIT, EST PREV VISIT, EST, AGE 40-64 Advance Directives Directive Yes / No Effective Date File Name No Information Encounters Encounter Description Practice Location Reason(s) For Visit Diagnoses Date Provider Providers Copied on Encounter [facility], [address], [place], [place], [id number], [place] [phone] [facility] No Information 3 Tristin Ayala. [address], [place], [place], [id number] , [place]. [phone] Referring Provider: Jamie Crow, [address], [place], [place], [id number]. tel:[phone] [facility], [address], [place], [place], [id number], [place] tel:[phone] [facility] Unspecified abnormal mammogram 3 Tristin Ayala. [address], [address], [place], [place], [id number] , [place]. tel:[phone] Referring Provider: Nikko Donahue [address], [place], [place], [id number]. tel:[phone] OFFICE/OUTPAT IENT VISIT, EST [facility], [address], [place], [place], [id number], [place] tel:[phone] [facility] Asthma (chief complaint) vitamin d (chief complaint) HTN (chief complaint) GERD (chief complaint) Dietary surveillance and counselingAsthmaHy pertension, UnspecifiedEdema 3 Tristin Ayala. [address], [address], [place], [place], [id number] , [place]. [phone] Referring Provider: Jamie Crow, [address], [place], [place], [id number]. tel:[phone] PREV VISIT, EST, AGE 40-64 [facility], [address], [place], [place], [id number], [place] tel:[phone] [facility] Physical (chief complaint) Dietary surveillance and counselingRoutine Medical ExamRoutine Medical Exam 3 Tristin Ayala. [address], [address], [place], [place], [address] , [place]. [phone] Referring Provider: Jamie Crow, [address], [place], [place], [id number]. tel:[phone] Family History Family Member Type Diagnosis Age At Onset Father Problem (finding) Stroke Mother Problem (finding) Stroke Brother Problem (finding) Hypertension Mother Problem (finding) Hypertension Payers Payer name Insurance type Covered constitution party ID Authoriza tion(s) No Information Social History Type Description Quantity Date Captured Comments Sex Male Smoking Status No Information Chief Complaint And Reason For Visit No Information Plan Of Treatment Date Type Action Status Referral Ordered: MAMMOGRAM, ONE BREAST ordered Referral Ordered: MAMMOGRAM, SCREENING ordered Referral Ordered: US EXAM, ABDOM, COMPLETE ordered History Of Present Illness Encounter Date Complaint History Of Prese nt Illness No Information Instructions Date Instruction Additional Infor caterina Decrease caloric intake Related to Dietary surveillance counseling Dietary counseling Related to Di etary surveillance counseling Decrease caloric intake Related to Dietary surveillance counseling Dietary counseling Related to Di etary surveillance counseling Assessments Type Assessment Date No Information
--- OUTSIDE RECORDS SUMMARY | 2025-02-10 08:31 | XMS_ITS | Data Portability ---
Author Organization [facility] [place] Address [address] [place] [address] Assessment Encounter Date Assessment Date Assessment LastModified by Organization Details LastModified Time 06/10/2023 06/10/2023 Annual gynecological exam performed. Patient will come back in a year unless there are new symptoms. Not available 06/10/2023 14:55:15 07/27/2024 07/27/2024 Annual gynecological exam performed. Patient will come back in a year unless there are new symptoms. [email or web address] Not available 07/15/2024 12:05:07 Plan of Treatment Reminders Order Date Submit Date Provider Last Modified By Organization Details Last Modified Time Details Appointments None recorded. Lab pap, IG + HR HPV - HPV regardless but if HPV is positive need subtyping 16,18/45Add CT/GC/Trich 2023 024 [facility] (Lab), [address], [place], [address], 4 17:04:30 Referral gastroenter ologist referral 2022 023 [email or web address] [facility], [address], [address], [place], [address], 3 10:31:59 Procedures colonoscopy screening (PROC) [address] [facility], [address], [id number], [place], [address], 4 14:48:07 Surgeries None recorded. Imaging MAMMO, screening, digital, bilateral [address] [facility], [address], [place], [address], 5 05:01:21 DEXA, axial skeleton + vertebral fracture assessment 2023 024 [facility], [address], [place], [address], 5 05:01:21 MAMMO, screening, bilateral 2022 023 [email or web address] [facility], [address], [place], [address], 4 11:15:25 Medication Orders Myrbetriq 25 mg tablet,exte nded release 2022 023 [email or web address] [facility] [id number] In [facility], [address] [place], [address], 4 12:05:21 Patient TargetsNo targets recorded. Patient InstructionsNo instructions recorded. 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 Atrop hic cell logan sauceda. Elect eduardolyle kimberly jose d by Shayna alva, Desiree ramos, CT on 2022 at 2:51 PM ----- ----- ----- ----- ----- ----- ----- ----- ----- ----- ----- ----- ----- ----- ----- ----- ----- ---- HPV RESUL TS: HPV mRNA E6/E7 : No HPV mRNA Detec yu NOTE: This high risk HPV mRNA assay detec ts fourt een high- risk HPV types (16, 18, 31, 33, 35, 39, 45, 51, 52, 56, 58, 59, 66, 68) witho ut diffe renti ation . COMME NT: This speci men was revie wed by a Cytot echno logis t and/o r Patho logis t (as indic ated in this repor t) after evalu ation using the Thinp rep Imagi ng Syste m. CL[facility] INFOR MATIO N: Menst rual Statu s: LMP (if appli cable ): Clini taylor Histo ry/Pr eviou s Pap: Type of Neopl soniya (if appli cable ): Signi fican t Clini taylor Findi ngs: Other Histo ry: Hormo charo (if appli cable ): PAP EDUCA IRMA L NOTE: The Pap Test is a scree rashaad test with an inher ent false negat dahiana rate. Liqui d-bas ed sampl ing may decre ase, but will not elimi sam, false negat dahiana resul ts. A negat dahiana resul t does not precl ude the prese nce and/o r devel opmen t of disea se, since the prese nce of abnor mal cells in the sampl e depen ds on the locat ion of the lesio n and sampl ing techn ique. Tre nued regul ar scree rashaad is the best metho d of cance r preve ntion . If repor yu cytol ogic findi ng do not corre late with physi taylor and/o r histo rical findi ngs, furth er inves tigat ion is recom brissa d, as clini lexii warra nted. Not Available [facility] (Lab) [address] [facility], [place], [address], 06/16/2023 15:55:04 07/27/20 24 07/27/2024 IMAGE GUIDE D PAP AND HPV REGAR DLESS image guided Pap, HPV regardless of Pap result SEE RESULT S BELOW CASE REPOR T: Cytol ogy Gynec ologi taylor Repor t Case: [id number] Autho niles laguna Provi ivan: Dermo dy, Isabelle , ANP, PLAYER DEVELOPMENT MANAGER Colle cted: 07/27 1028 Order ing Locat ion: [place] Patho logy Recei jyoti: 07/28 1036 First Scree n: Ara Up , CT Speci men: Scree rashaad Pap - Image d, Cervi x STATE MENT OF ADEQU ACY: Satis facto ry for evalu ation Trans forma tion zone compo nent canno t be defin itive ly ident ified due to the prese nce of atrop hy or other hormo nal grimes es ----- ----- ----- ----- ----- ----- ----- ----- ----- ----- ----- ----- ----- ----- ----- ----- ----- ---- FINAL DIAGN OSIS: Negat dahiana for Intra epith elial Leswily n or Jazmín montoya (NIL) . Atrop hic cell logan sauceda. Elect debbie garcia d by Ara Up CT on 08/04 at 1:00 PM ----- ----- ----- ----- ----- ----- ----- ----- ----- ----- ----- ----- ----- ----- ----- ----- ----- ---- HPV RESUL TS: HPV mRNA E6/E7 : No HPV mRNA Detec yu NOTE: This high risk HPV mRNA assay detec ts fourt een high- risk HPV types (16, 18, 31, 33, 35, 39, 45, 51, 52, 56, 58, 59, 66, 68) witho ut diffe renti ation . COMME NT: This speci men was revie wed by a Cytot echno logis t and/o r Patho logis t (as indic ated in this repor t) after evalu ation using the Thinp rep Imagi ng Syste m. CLINI [facility] INFOR MATIO N: Menst rual Statu s: LMP (if appli cable ): Clini taylor Histo ry/Pr eviou s Pap: Type of Neopl soniya (if appli cable ): Signi fican t Clini taylor Findi ngs: Other Histo ry: Hormo charo (if appli cable ): PAP EDUCA IRMA L NOTE: The Pap Test is a scree rashaad test with an inher ent false negat dahiana rate. Liqui d-bas ed sampl ing may decre ase, but will not elimi sam, false negat dahiana resul ts. A negat dahiana resul t does not precl ude the prese nce and/o r devel opmen t of disea se, since the prese nce of abnor mal cells in the sampl e depen ds on the locat ion of the lesio n and sampl ing techn ique. Tre nued regul ar scree rashaad is the best metho d of cance r preve ntion . If repor yu cytol ogic findi ng do not corre late with physi taylor and/o r histo rical findi ngs, furth er inves tigat ion is recom brissa d, as ayala de la cruz. Not Available [facility] (Lab) [address] [facility], [place], [address], 08/04/2024 14:05:11 07/27/20 24 07/27/2024 TRICH OMONA S VAGIN BRET (RRNA ) trichomonas vaginalis ribosomal RNA (rrna) Negati ve negati ve Not Available [facility] (Lab) [address] [facility], [place], [address], 08/04/2024 14:05:11 07/27/20 24 07/27/2024 CT/GC (EMILY) , THINP REP VIAL chlamydia trachomatis, PCR Negati ve negati ve Not Available [facility] (Lab) [address] [facility], [place], [address], 08/04/2024 14:05:11 07/27/20 24 07/27/2024 CT/GC (EMILY) , THINP REP VIAL neisseria gonorrhoeae, PCR Negati ve negati ve Not Available [facility] (Lab) [address] [facility], [place], [address], 08/04/2024 14:05:11 Result Notes None recorded. Procedures Surgical History Date Name Laterality Status Provider Name and Address Organization Details Recorded Time 4 Date of Last Mammogram completed Elma Quinteros [facility] 07/27/2024 10:26:35 3 Date of Last Pap Smear completed [facility] 06/10/2023 14:58:28 1 Knee arthroscopy/dejesus rgery completed [facility] 06/10/2023 14:32:42 9 section completed [facility] 06/10/2023 14:32:28 6 section completed [facility] 06/10/2023 14:32:21 Imaging Results None recorded. Procedure Notes None recorded. Medical Equipment None Reported. Allergies Allergen ID Allergen Name Allergen Category Reaction Reaction Severity Criticality Documentation Date Start Date Code Code System Note Provider Name and Address Organization Details Recorded Time Non-stero idal anti-infl ammatory agent (product) medicatio n Not available Not available Not available 06/10/2023 48166 005 SNOMED Makeda krishnamurthy [facility] 14:57:37 12514 latex environme nt,medica tion Not available Not available Not available 06/10/2023 17834 91 RxNorm Makeda krishnamurthy [facility] 14:57:44 Medications Name Sig Start Date Stop Date Status Note LastModified by Organization Details LastModified Time paroxetine 10 mg tablet TAKE 1 TABLET BY MOUTH EVERY DAY NIGHTLY 06/10 completed Not Available Not Available Not Available sucralfate 1 gram tablet TAKE 1 TABLET EVERY 6 HOURS 06/10 completed Not Available Not Available Not Available prednisone 20 mg tablet TAKE 2 TABLETS BY MOUTH ONCE DAILY 07/27 completed Not Available Not Available Not Available omeprazole 40 mg capsule,ritchie yed release TAKE 1 CAPSULE BY MOUTH EVERY DAY active Not Available Not Available No t Available metocloprami de 5 mg tablet TAKE 1 TABLET BEFORE MEALS AND AT BEDTIME 06/10 completed Not Available Not Available Not Available ergocalcifer ol (vitamin D2) 1,250 mcg (50,000 unit) capsule TAKE 1 CAPSULE BY MOUTH EVERY WEEK active Not Available Not Available No t Available albuterol sulfate HFA 90 mcg/actuatio n aerosol inhaler 1 INHALED EVERY 4 HOURS active Not Available Not Available No t Available amoxicillin 875 mg-potassium clavulanate 125 mg tablet TAKE 1 TABLET BY MOUTH TWICE A DAY 07/27 completed Not Available Not Available Not Available hydrochlorot hiazide 12.5 mg tablet TAKE 1 TABLET BY MOUTH ONCE DAILY 07/27 completed Not Available Not Available Not Available Symbicort 160 mcg-4.5 mcg/actuatio n HFA aerosol inhaler INHALE 2 PUFFS BY MOUTH EVERY 12 HOURS active Not Available Not Available No t Available Myrbetriq 25 mg tablet,exten ded release Take 1 tablet every day by oral route for 30 days. 07/15 completed Not Available Not Available Not Available Vitals Date Recorded Body height Body mass index (BMI) Body weight Systolic blood pressure Diastolic blood pressure Provider Name and Address Organization Details Last Updated DateTime 06/10/2023 165.1 cm 30.5 kg/m2 92802.4 g 135 mm[Hg] 82 mm[Hg] Makeda Melendez [facility] 3 14:57:27 Date Recorded Body height Body mass index (BMI) Body weight Systolic blood pressure Diastolic blood pressure Provider Name and Address Organization Details Last Updated DateTime 07/27/2024 165.1 cm 26.3 kg/m2 98664.59 g 149 mm[Hg] 82 mm[Hg] Elma Middletonton [facility] 4 10:21:08 Social History Question Answer Notes LastModified by Organizat ion Details LastModified Time Tobacco Smoking Status Never Smoker Makeda Melendez null, [facility] 06/10/2023 15:00:13 Are You Blind Or Do You Have Difficulty Seeing? No Information n ot available 06/10/2023 What Is Your Level Of Caffeine Consumption? Moderate [email or web address] Information not available 06/10/2023 In The 14 Days Before Symptom Onset, Have You Had Close Contact With A Laboratory-confirm ed COVID-19 While That Case Was Ill? No [email or web address] Information n ot available 06/10/2023 In The 14 Days Before Symptom Onset, Have You Had Close Contact With A Person Who Is Under Investigation For COVID-19 While That Person Was Ill? No [email or web address] Information not available 06/10/2023 Have You Been To An Area Known To Be High Risk For COVID-19? No [email or web address] Information not available 06/10/2023 Are You Deaf Or Do You Have Serious Difficulty Hearing? No [email or web address] Information not available 06/10/2023 What Type Of Diet Are You Following? REGULAR [email or web address] Information n ot available 06/10/2023 Do You Use Your Seat Belt Or Car Seat Routinely? Yes [email or web address] Information not available 06/10/2023 Do You Have Smoke And Carbon Monoxide Detectors In Your Home? Yes [email or web address] Information not available 06/10/2023 Do You Use Sunscreen Routinely? Yes [email or web address] Information not available 06/10/2023 Has Tobacco Cessation Counseling Been Provided? No [email or web address] Information not available 06/10/2023 Do You Have Difficulty Walking Or Climbing Stairs? No [email or web address] Information not available 06/10/2023 Sex: Unknown Functional Status Question Answer Note LastModified by Organizat ion Details LastModified Time Do you use any illicit or recreational drugs? No [email or web address] Information not available 06/10/2023 Do you or have you ever used any other forms of tobacco or nicotine? No [email or web address] Information not available 06/10/2023 What is your level of alcohol consumption? None [email or web address] Information not available 06/10/2023 Are you able to walk? YESWOREST [email or web address] Information not available 06/10/2023 Are you able to care for yourself? Yes [email or web address] Information n ot available 06/10/2023 Do you have difficulty dressing or bathing? No [email or web address] Information not available 06/10/2023 What is your exercise level? Occasional [email or web address] Information not available 06/10/2023 Mental Status Question Answer Note LastModified by Organization D etails LastModified Time Do you feel stressed (tense, restless, nervous, or anxious, or unable to sleep at night)? [id number] [email or web address] Information not available 06/10/2023 Family History Relationship Description Onset Age of this Age Resolved Age Notes LastModified by Organization Details LastModified Time Mother Hypertensive disorder [email or web address] Not available 06/10 14:31:48 Sister Hypertensive disorder [email or web address] Not available 06/10 14:31:48 Sister Disorder of thyroid gland [email or web address] Not available 06/10 14:32:04 Sister Malignant tumor of stomach [email or web address] Not available 2023 10:29:04 Father Hypertensive disorder Not available 06/10 14:59:53 Medical History Condition Response Allergies (Food, seasonal, environmental ) Y Other Y Breast Cancer N Drug/Latex Allergies/Reactions N Blood Transfusion N Dermatologic Disorders N Lung Disease N Defects or Inherited Disease N Breast Problem N Gestational Diabetes N Hematologic disorders N Anesthesia Complications N History of STI N Deep Vein Thrombosis N Polycystic ovary syndrome N Anxiety Disorder Y Autoimmune disease N Arthritis N Infertility N Polyps N Acid Reflux (GERD) Y History of abnormal pap N Cancer N Stroke N Varicosities N Neurologic/Epilepsy N Endometriosis N High Cholesterol N Headaches N Fibromyalgia Y Kidney Disease N Heart Problems N Kidney or Bladder Problems N Thyroid Problems N GI Problems N Eating Disorder N Anemia N Art (IVF or FET) N Psychiatric Illness N Ovarian Cancer N Diabetes N Pulmonary (TB, Asthma) N Hepatitis/Liver Disease N No Past Medical History N Eczema N Urinary Tract Infection N Abuse/Domestic Violence N Asthma Y Trauma/Violence N Depression/ depression Y Heart Disease N Pre-Eclampsia N Hypertension Y Osteoporosis N Thrombophilias N Gynecological History Statement/Question Response Abnormal Pap N Date of Last Mammogram 11/14/2023 Date of LMP 01/25/2013 Sexually Active? Y STIs/STDs N Date of DEXA bone scan Date of Last Pap Smear 06/10/2023 Sexual Problems? Y Current Control Method Menopause LMP Approximate Obstetrics History GPAL:G 2 P 2 0 0 2 Type Value Full Term 2 Living 2 Total 2 Past Encounters Encounter ID Performer Location Encounter Start Date Encounter Closed Date Diagnosis/Indication Diagnosis SNOMED-CT Code Diagnosis ICD10 Code Diagnosis Note [id number] Tahmina David [facility] [address] [address] 06/10/2023 14:15:48 06/10/2023 17:48:02 Gynecologic examination 59292339 Z01.419 Take Calcium with Vitamin D 12-1500mg daily. Do monthly self breast exams. It is advised to get annual flu shot in the fall and she could obtain at [facility] or [facility] clinic. If you haven't received the Tdap vaccine in the last 10 years you should obtain one as well. Have mammogram yearly, bone density every 2-3 years and colonoscop y every 5-10 years depending on findings and history. Engage in daily exercise of low impact aerobic exercise 45-60 minutes 4-5 times weekly. Avoid tobacco and illicit drugs as well as using moderation with alcohol intake less than 1-2 8 oz beverages daily. This lifestyle behavior pattern will lead to less health conditions and longer life span. If BMI greater than 25 weight watchers or dietary consult advised. Questions have been answered. Patient appears to understand instructio ns, but if you have any further questions call or respond to this email Pap/hpv sent (not had one since 2006).STD ScreenGene tic Screen discussedC olon Screen orderedDex a ScreenRout ine LabsNot SA Screening mammography 24 647343 Z12.31 Screening for malignant neoplasm of colon 748450803 Z12.11 Overactive urinary bladder 297169979 N32.81 Trial of myrbetriq 25mg ER with med check x 4-6wksSamp les given Counseled on medication R/B's, Most common side effects, & use. All questions were answered to patient satisfacti on. [id number] Ron Shukla MD [facility] [address] [address] 07/27/2024 10:12:21 07/27/2024 11:27:03 Gynecologic examination 32380995 Z01.419 Annual gynecologi taylor exam performed. Patient will come back in a year unless there are new symptoms. Suggest Calcium with Vitamin D if not eating in diet. Patient advised to get annual flu shot. Recommend yearly physicals and perform monthly breast exams. Genetic testing is available for patients with family history of cancer. Engage in safe sexual practices, use condoms. Encouraged to have daily exercise. Avoid tobacco and illicit drugs, moderation of alcohol. If BMI greater than 25 dietary consult advised. If you have any questions please call or email. mammogram- [facility] in November 2024 - order given colon cancer screening - [facility]- GI referral to [facility] for colonoscop y DEXA scan- [facility] - pt to schedule; order given Pap smear- pap w/ collected today per pt request. Discussed that USPSTF recommends against screening for cervical cancer in women older than 65yo, those who've had a hysterecto my for non-cancer indication s, & who have had adequate prior screening & are not otherwise at high risk for cervical cancer. laboratory evaluation - PCP STI testing - requested Screening mammography 24 785606 Z12.31 Screening for osteoporosis 638340150 Z13.820 Screening for malignant neoplasm of colon 462908255 Z12.11 GI referral for colonoscop y Health Concerns Section Related Observation LastModified by Organization Detai ls LastModified Time None Recorded Concern Status LastModified by Organization Details LastModified Time None Recorded Advance Directives Directive None Recorded Payers Encounter Date Sequence Insurance Name Policy Number Policy Neil Covered Member ID Neil Member ID Guarantor Name 06/10/2023 1 [facility] [id number] Gail Del Real [id number] Gail Del Real 07/27/2024 1 [facility] [id number] Gail Del Real [id number] Gail Del Real Notes Date Note Type Note Provider Name and Address Organization Details Recorded Time 06/10/2023 text/html Annual Exhauster Post-MenopausalRe ported bypatient.Menopau mariano Symptoms:no menopausal symptoms; normal vaginal lubrication Vaginal Bleeding:history of menopause having occurred; no history of post menopausal bleeding Urinary Symptoms:no hematuria; no incontinence; no nocturia; no urinary frequency; Complains of [facility] for the last year. Neg Hx of UTI Recently had urine checked at PCP & neg for infection. Vulva:no genital lesion; no vulvar atrophy Vagina:normal vaginal discharge; no vaginal atrophy Breast:no breast lump; no nipple discharge; no breast pain Sexual Complaints:no sexual complaints Psychological Symptoms:no depression; no anxiety Preventive Measures:encourag e regular mammograms starting age 40; encourage self breast examination; encourage regular exercise; encourage no tobacco use; needs to schedule mammogram; needs to schedule colonoscopy Tahmina David [facility]- [address], [place], [address], [facility] 06/10/2023 17:42:33 07/27/2024 text/html Annual Exhauster Post-MenopausalRe ported bypatient.Menopau mariano Symptoms:no menopausal symptoms;inadequa cy of lubrication of vaginal mucosa Vaginal Bleeding:history of menopause having occurred; no history of post menopausal bleeding Urinary Symptoms:no hematuria; no incontinence; no nocturia; no urinary frequency Vulva:no genital lesion; no vulvar atrophy Vagina:normal vaginal discharge; no vaginal atrophy Breast:no breast lump; no nipple discharge; no breast pain Sexual Complaints:no sexual complaints Psychological Symptoms:no depression; no anxiety Preventive Measures:encourag e regular mammograms starting age 40; encourage self breast examination; encourage regular exercise; encourage no tobacco use; mammogram performed within the past year; needs to schedule mammogram; needs to schedule colonoscopy; needs to schedule bone density Patient presents for annual well woman exam. Patient was recently sexually active for the first time in several years and reports pain with intercourse. Patient states that she does not plan to be sexually active again. Pt requests STI testing and a pap smear. Elma krishnamurthy [facility] 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 Chief Status 06/10/20 23 1 CLOSED Fetus Data First Name Last Name Admitted to NICU Weight (g) Sex Living Outcome Pediatric Complications Fetus ID Race Codes Race Delivery Type 2721.55 2 F Full Term [id number] Primary Abel Calculation Initial Abel Date Initial Exam Date Initial Exam Provider Initial Ultrasound Date Last Menstrual Period Date Ultra Sound Weeks Gestation 0 Eighteen To Twenty Week Abel Update Ultra Sound Date Fundal Height At Umbil Quickening Date Ultra Sound Latest Weeks Gestation Final Abel Confirmed By Final Abel Confirmed Date Final Abel Date Ultra Sound Latest Days Gestation 0 0 Menstrual History Last Menstrual Date Menses Monthly On Bcp Conception Prior Menses Frequency Hcg Plus Date Menarche Onset Age Delivery Information Delivery Date Delivery Type Labor Anesthesia Weeks Gestation Incision Type Labor Labor Length Hrs Delivered By Post Complications Tubal Sterilization Discharge Date Comments 6 Discharge Information Feeding Method Contraceptive Method Maternal HG B and HCT Levels Ob Episode Information Episode Created Date Number of Fetuses Patient Bloodtype Patient rh Status Prepregnancy Weight lbs Domestic Partner Domestic Partner Phone Father Name Hydroelectric Station Operator Chief Status 06/10/20 23 1 CLOSED Fetus Data First Name Last Name Admitted to NICU Weight (g) Sex Living Outcome Pediatric Complications Fetus ID Race Codes Race Delivery Type 3175.14 4 F Full Term [id number] Repeat Abel Calculation Initial Abel Date Initial Exam Date Initial Exam Provider Initial Ultrasound Date Last Menstrual Period Date Ultra Sound Weeks Gestation 0 Eighteen To Twenty Week Abel Update Ultra Sound Date Fundal Height At Umbil Quickening Date Ultra Sound Latest Weeks Gestation Final Abel Confirmed By Final Abel Confirmed Date Final Abel Date Ultra Sound Latest Days Gestation 0 0 Menstrual History Last Menstrual Date Menses Monthly On Bcp Conception Prior Menses Frequency Hcg Plus Date Menarche Onset Age Delivery Information Delivery Date Delivery Type Labor Anesthesia Weeks Gestation Incision Type Labor Labor Length Hrs Delivered By Post Complications Tubal Sterilization Discharge Date Comments 9 Discharge Information Feeding Method Contraceptive Method Maternal HG B and HCT Levels
--- OUTSIDE RECORDS SUMMARY | 2025-02-10 08:31 | XMS_ITS | Clinical Summary ---
Author Organization [facility] Address [address] [place] [address] Care Team Providers Care Quarry Supervisor Name Role Phone Jean Pierre Mathias DO Primary Care Provider [phone] Social History Tobacco Use Types Packs/Day Years Used Date Smoking Tobacco: Never Assessed Personal Safety Answer Date Recorded Getting School Help Needed Not on file 11/27 Comments Unknown Sex and Gender Information Value Date Recorded Sex Assigned at Not on file Legal Sex Female 3:11 AM IN HOME TUTOR Gender Identity Not on file Sexual Orientation Not on file Last Filed Vital Signs Vital Sign Reading Time Taken Comments Blood Pressure - - Pulse - - Temperature - - Respiratory Rate - - Oxygen Saturation - - Inhaled Oxygen Concentration - - Weight 81.6 kg (180 lb) 01/10/2016 9:00 AM CDT Height 170.2 cm (5' 7) 01/10/2016 9:00 AM CDT Body Mass Index 28.19 01/10/2016 9:00 AM CDT Plan of Treatment Not on file Insurance [facility] Care Teams Quarry Supervisor Relationship Specialty Start Date End Date Jean Pierre Mathias DO PCP - General Internal Medicine 12/11/20
--- OUTSIDE RECORDS SUMMARY | 2025-02-10 08:31 | XMS_ITS | Clinical Summary ---
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 Gender Identity Not on file Sexual Orientation Not on file Plan of Treatment Health Maintenance Due Date Last Done Comments DEXA Bone Density 1955 Hepatitis C Virus (HCV) Screening 1955 TdaP Immunization 1955 Colonoscopy 2002 Colorectal Cancer Screening 2002 Cologuard 2007 Immunochemical Fecal Occult Blood 2007 Mammogram 2007 Pneumococcal Immunization (5 0+ years) (1 of 1 - PCV) 2007 Zoster Immunization (1 of 2) 2007 Influenza Immunization (#1) 2024 SARS-COV-2 Immunization ( - season) 2024 Respiratory Syncytial Virus (RSV) Immunization (Adult) (1 - 1-dose 75+ series) 01/27/2032 Hepatitis B Immunization Aged Out No longer eligible based on patient's age to complete this topic Meningococcal Immunization (ACWY) Aged Out No longer eligible based on patient's age to complete this topic Rotavirus Immunization Aged Out No lo nger eligible based on patient's age to complete this topic
--- OUTSIDE RECORDS SUMMARY | 2025-02-10 08:31 | XMS_ITS | Referral Summary ---
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
== END 2025-02-10 08:25 | disposition home or self-care (01) ==
LOC: ANHIMG 08:27
PROVIDERS: PCP Nurse Practitioner Family; Visit Provider Nurse Practitioner Family
DX: Z12.31 Encounter for screening mammogram for malignant neoplasm of breast (principal)
CPT/HCPCS: 77063; 77067

== ENCOUNTER 2025-03-29 12:38 | Outpatient (CLI) | payer OTHER, SELFPAY ==
--- OUTSIDE RECORDS SUMMARY | 2025-03-29 12:44 | XMS_ITS | Referral Summary ---
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
--- OUTSIDE RECORDS SUMMARY | 2025-03-29 12:44 | XMS_ITS | Encounter Summary ---
Author Organization [facility] Address [address] [place] [address] Care Team Providers Care Commutator Inspector Name Role Phone Unavailable Primary Care Provider Unavailabl e Prior Encounters Date Type Department Care Team Description 10/04/2019 Converted CPS Chart Documents [facility] [address] [place] [address] <No scans attached> 10/04/2019 Converted 13x Documents [facility] [address] [place] [address] <No scans attached> Plan of [...]
--- OUTSIDE RECORDS SUMMARY | 2025-03-29 12:44 | XMS_ITS | Clinical Summary ---
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
--- OUTSIDE RECORDS SUMMARY | 2025-03-29 12:44 | XMS_ITS | Clinical Summary ---
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
--- OUTSIDE RECORDS SUMMARY | 2025-03-29 12:44 | XMS_ITS | Clinical Summary ---
Author Organization [facility] Address [address] [place] [address] Care Team Providers Care Hall Monitor Name Role Phone Michelle Kenyon NP Primary Care Provider [phone] Social History Tobacco Use Types Packs/Day Years Used Date Smoking Tobacco: Never Assessed Comments Unknown Sex and Gender Information Value Date Recorded Sex Assigned at Not on file Legal Sex Female 5:56 PM CDT Gender Identity Not on file Sexual Orientation Not on file Plan of Treatment Health Maintenance Due Date Last Done Comments Colorectal Cancer Screening Colonoscopy (10 Years) 1957 Hepatitis C 1975 DTaP, Tdap and Td Vaccines ( 1 - Tdap) 01/27/1976 Mammogram Screening 1997 Pneumococcal Vaccine: 50+ Ye ars (1 of 1 - PCV) 2007 Zoster Vaccines (1 of 2) 2007 Dexa Scan (General) 2022 COVID-19 Vaccine ( - 2023-2 5 season) 2024 RSV Immunization or 60+ Years (1 - 1-dose 75+ series) 01/27/2032 Meningococcal B Vaccine Aged Out No l onger eligible based on patient's age to complete this topic Meningococcal Vaccine Aged Out No ramona jorge eligible based on patient's age to complete this topic RSV Immunizations Under 20 Months Aged Out No longer eligible based on patient's age to complete this topic Care Teams Hall Monitor Relationship Specialty Start Date End Date Michelle Kenyon NP [facility] - General 02/22/16
--- OUTSIDE RECORDS SUMMARY | 2025-03-29 12:44 | XMS_ITS | Clinical Summary ---
Author Organization [facility] Address [address] [place] [address] Care Team Providers Care Warehouse Associate Driver Name Role Phone Unavailable Primary Care Provider [...]
--- OUTSIDE RECORDS SUMMARY | 2025-03-29 12:44 | XMS_ITS | Data Portability ---
Author Organization [facility] [place] Address [address] [place] [address] Assessment Encounter Date Assessment Date Assessment LastModified by Organization Details LastModified Time 06/10/2023 06/10/2023 Annual gynecological exam performed. Patient will come back in a year unless there are new symptoms. [email or web address] Not available 06/10/2023 14:55:15 07/27/2024 07/27/2024 Annual gynecological exam performed. Patient will come back in a year unless there are new symptoms. [email or web address] Not available 07/15/2024 12:05:07 Plan of Treatment Reminders Order Date Submit Date Provider Last Modified By Organization Details Last Modified Time Details Appointments None recorded. Lab pap, IG + HR HPV - HPV regardless but if HPV is positive need subtyping 16,18/[address]/GC/Trich 2023 024 [facility] (Lab), [address], [place], [address], 4 17:04:30 Referral gastroenter ologist referral 2022 023 [email or web address] [facility] [place] 2[place] - Gastroenterol alex, [address], [place], [address], 3 10:31:59 Procedures colonoscopy screening (PROC) 2023 024 [facility] Gastroenterol alex, [address], [address], [place], [address], 4 14:48:07 Surgeries None recorded. Imaging MAMMO, screening, digital, bilateral 2023 024 [facility], [address], [place], [address], 5 05:01:21 DEXA, axial skeleton + vertebral fracture assessment 2023 024 [facility], [address], [place], [address], 5 05:01:21 MAMMO, screening, bilateral 2022 023 [email or web address] [facility], [address], [place], [address], 4 11:15:25 Medication Orders Myrbetriq 25 mg tablet,exte nded release 2022 023 [email or web address] [facility] [address] [facility], [address] [place], [address], 4 12:05:21 Patient TargetsNo targets recorded. Patient InstructionsNo instructions recorded. Reason for Referral Cement Patcher Referral for Screening for malignant neoplasm of colon Referring Physician: Tahmina David, LOCK UP WORKER, Encounter Date: 06/10/2023 Results Created Date Observation Date Name Description Value Unit Range Abnormal Flag Note LastModifiedBy Organization Detail LastModifiedTime 06/10/20 23 06/10/2023 IMAGE GUIDE D PAP AND HPV REGAR DLESS image guided Pap, HPV regardless of Pap result SEE RESULT S BELOW CASE REPOR T: Cytol ogy Gynec ologi taylor Repor t Case: [id number] Autho niles laguna Provi ivan: Curt Collado Colle cted: 06/10 1705 SPORTS SPECIALIST Order ing Locat ion: [place] [facility] Recei jyoti: 06/11 0729 First Scree n: Jami Flores ica Rescr een: Shayna alva, Janelleil ay, CT Speci men: Scree rashaad Pap - Image d, Cervi x STATE MENT OF ADEQU ACY: Satis facto ry for evalu ation Trans forma tion zone compo nent prese nt FINAL DIAGN OSIS: Negat dahiana for Intra epith elial Lesio n or Jazmín montoya (NIL) . Atrop hic cell logan sauceda. Elect debbie harris jose d by Shayna alva, Desiree ramos, [...] is recom brissa d, as clini lexii warrnia nted. Not Available [facility] (Lab) [address], [place], [address], 06/16/2023 15:55:04 07/27/20 24 07/27/2024 IMAGE GUIDE D PAP AND HPV REGAR DLESS image guided Pap, HPV regardless of Pap result SEE RESULT S BELOW CASE REPOR T: Cytol ogy Gynec ologi taylor Repor t Case: [id number] Autho niles laguna Provi ivan: Dermo dy, Isabelle , ANP, GENERAL INTERNAL MEDICINE PHYSICIAN Colle cted: 07/27 1028 Order ing Locat ion: [place] [facility] [place] Recei jyoti: 07/28 1036 First Scree n: Maureen r, Ara , CT Speci men: Scree rashaad Pap [...] OSIS: Negat dahiana for Intra epith elial Tay berger or Jazmín montoya (NIL) . Atrop hic mahin ford rn. Elect debbie garcia d by Ara Up , CT on 08/04 at 1:00 PM ----- [...] ion is recom brissa d, as ayala nava nted. Not Available [facility] (Lab) [address], [place], [address], 08/04/2024 14:05:11 07/27/20 24 07/27/2024 TRICH OMONA S VAGIN BRET (RRNA ) trichomonas vaginalis ribosomal RNA (rrna) Negati ve negati ve Not Available [facility] (Lab) [address], [place], [address], 08/04/2024 14:05:11 07/27/20 24 07/27/2024 CT/GC (EMILY) , THINP REP VIAL chlamydia trachomatis, PCR Negati ve negati ve Not Available [facility] (Lab) [address], [place], [address], 08/04/2024 14:05:11 07/27/20 24 07/27/2024 CT/GC (EMILY) , THINP REP VIAL neisseria gonorrhoeae, PCR Negati ve negati ve Not Available [facility] (Lab) [address], [place], [address], 08/04/2024 14:05:11 Result Notes None recorded. Procedures Surgical History Date Name Laterality Status Provider Name and Address Organization Details Recorded Time 4 Date of Last Mammogram completed Elma Quinteros [facility] 07/27/2024 10:26:35 3 Date of [facility] 14:58:28 1 Knee arthroscopy/dejesus rgery [facility]/10[facility]2023 14:32:42 9 section [facility]10[facility]2023 14:32:28 6 section [facility]10[facility]2023 14:32:21 Imaging Results None recorded. Procedure Notes None recorded. Medical Equipment None Reported. Allergies Allergen ID Allergen Name Allergen Category Reaction Reaction Severity Criticality Documentation Date Start Date Code Code System Note Provider Name and Address Organization Details Recorded Time Non-stero idal anti-infl ammatory agent (product) medicatio n Not available Not available Not available 06/10/2023 04478 005 SNOMED Makeda krishnamurthy [facility] 14:57:37 63806 latex environme nt,medica tion Not available Not available Not available 06/10/2023 06766 91 RxNorm Makeda krishnamurthy [facility] 14:57:44 Medications Name Sig Start Date [...] Body mass index (BMI) Body weight Systolic And Diastolic Provider Name and Address Organization Details Last Updated DateTime 06/10/2023 165.1 cm 30.5 kg/m2 59240.4 g 135/82 mm[Hg] Makeda Melendez [facility] 06/10/2023 14:57:27 Date Recorded Body height Body mass index (BMI) Body weight Systolic And Diastolic Provider Name and Address Organization Details Last Updated DateTime 07/27/2024 165.1 cm 26.3 kg/m2 50533.59 g 149/82 mm[Hg] Elma Middletonton [facility] 07/27/2024 10:21:08 Social History Question Answer Notes LastModified by Organizat ion Details LastModified Time Tobacco Smoking Status Never Smoker Makeda Melendez [facility], [facility] 06/10/2023 15:00:13 Are You Blind Or Do You Have Difficulty Seeing? No Information n ot available 06/10/2023 What Is Your Level Of Caffeine Consumption? Moderate [email or web address] Information not available 06/10/2023 In The 14 Days Before Symptom Onset, Have You Had Close Contact With A Laboratory-confirm ed COVID-19 While That Case Was Ill? No [email or web address] Information n ot available 06/10/2023 In The 14 Days Before Symptom Onset, Have You Had Close Contact With A Person Who Is Under Investigation For COVID-19 While That Person Was Ill? No [email or web address] Information not available 06/10/2023 Have You Been To An Area Known To Be High Risk For COVID-19? No [email or web address] Information not available 06/10/2023 Are You Deaf Or Do You Have Serious Difficulty Hearing? No [email or web address] Information not available 06/10/2023 What Type Of Diet Are You Following? REGULAR Information n ot available 06/10/2023 Do You Use Your Seat Belt Or Car Seat Routinely? Yes [email or web address] Information not available 06/10/2023 Do You Have Smoke And Carbon Monoxide Detectors In Your Home? Yes [email or web address] Information not available 06/10/2023 Do You Use Sunscreen Routinely? Yes Information not available 06/10/2023 Has Tobacco Cessation Counseling Been Provided? No [email or web address] Information not available 06/10/2023 Do You Have Difficulty Walking Or Climbing Stairs? No [email or web address] Information not available 06/10/2023 Sex: Unknown Functional Status Question Answer Note LastModified by Organizat ion Details LastModified Time Do you use any illicit or recreational drugs? No [email or web address] Information not available 06/10/2023 Do you or have you ever used any other forms of tobacco or nicotine? No [email or web address] Information not available 06/10/2023 What is your level of alcohol consumption? None [email or web address] Information not available 06/10/2023 Are you able to walk? YESWOREST [email or web address] Information not available 06/10/2023 Are you able to care for yourself? Yes [email or web address] Information n ot available 06/10/2023 Do you have difficulty dressing or bathing? No [email or web address] Information not available 06/10/2023 What is your exercise level? Occasional [email or web address] Information not available 06/10/2023 Mental Status Question Answer Note LastModified by Organization D etails LastModified Time Do you feel stressed (tense, restless, nervous, or anxious, or unable to sleep at night)? [id number] Information not available 06/10/2023 Family History Relationship Description Onset Age of this Age Resolved Age Notes LastModified by Organization Details LastModified Time Mother Hypertensive disorder [email or web address] Not available 06/10 14:31:48 Sister Hypertensive disorder [email or web address] Not available 06/10 14:31:48 Sister Disorder of thyroid gland [email or web address] Not available 06/10 14:32:04 Sister Malignant tumor of stomach [email or web address] Not available 2023 10:29:04 Father Hypertensive disorder [...] SNOMED-CT Code Diagnosis ICD10 Code Diagnosis Note [id number] [facility] [address] [address] 06/10/2023 14:15:48 06/10/2023 17:48:02 Gynecologic examination 76669651 Z01.419 Take Calcium with Vitamin D 12-1500mg daily. Do monthly self breast exams. It is advised to get annual flu shot in the fall and she could obtain at [facility] or [facility] care clinic. If you haven't received the Tdap [...] ScreenRout ine LabsNot SA Screening mammography 24 278226 Z12.31 Screening for malignant neoplasm of colon 928251308 Z12.11 Overactive urinary bladder 678224108 N32.81 Trial of myrbetriq 25mg ER with med check x 4-6wksSamp les given Counseled on medication R/B's, Most common side effects, & use. All questions were answered to patient satisfacti on. [id number] Ron Shukla MD [place] [address] [address] 07/27/2024 10:12:21 07/27/2024 11:27:03 Gynecologic examination 46669307 Z01.419 Annual gynecologi taylor exam performed. Patient [...] cancer screening - DUE- GI referral to [facility] for colonoscop y DEXA scan- DUE - [...] STI testing - requested Screening mammography 24 105404 Z12.31 Screening for osteoporosis 053391045 Z13.820 Screening for malignant neoplasm of colon 077421704 Z12.11 GI referral for colonoscop y Health Concerns Section Related Observation LastModified by Organization Detai ls LastModified Time None Recorded Concern Status LastModified by Organization Details LastModified Time None Recorded Advance Directives Directive None Recorded Payers Insurance Date Sequence Insurance Name Policy Number Policy Neil Covered Member ID Neil Member ID Guarantor Name 07/27/2024 1 [facility] [id number] Gail Del Real [id number] Gali Del Real Notes Date Note Type Note Provider Name and Address Organization Details Recorded Time 06/10/2023 text/html Annual Regional Vice President Life Sales Post-MenopausalRe ported bypatient.Menopau mariano Symptoms:no menopausal symptoms; [...] schedule mammogram; needs to schedule colonoscopy Tahmina David, [facility]- [address], [place], [address], [facility] 06/10/2023 17:42:33 07/27/2024 text/html Annual Regional Vice President Life Sales Post-MenopausalRe ported bypatient.Menopau mariano Symptoms:no menopausal symptoms;inadequa [...] testing and a pap smear. Elma krishnamurthy [facility] 07/27/2024 11:21:00 OBGyn Episode Ob Episode Information Episode Created Date Number of Fetuses Patient Bloodtype Patient rh Status Prepregnancy Weight lbs Domestic Partner Domestic Partner Phone Father Name Director Consumer Affairs Status 06/10/20 23 1 CLOSED Fetus Data First Name Last Name Admitted to NICU Weight (g) Sex Living Outcome Pediatric Complications Fetus ID Race Codes Race Delivery Type 2721.55 2 F Full Term 14549 Primary Abel Calculation Initial Abel Date Initial [...] Domestic Partner Domestic Partner Phone Father Name Director Consumer Affairs Status 06/10/20 23 1 CLOSED Fetus Data First Name Last Name Admitted to NICU Weight (g) Sex Living Outcome Pediatric Complications Fetus ID Race Codes Race Delivery Type 3175.14 4 F Full Term 82209 Repeat Abel Calculation Initial Abel Date Initial [...]
[2025-03-29 12:56] LABS: Hematocrit 37.3 % (37.0-47.0); Hemoglobin 11.6 g/dL (12.0-15.0); Immature Granulocyte Percent A 0.2 % (0-0.5); Lymphocytes Absolute Auto 1.82 K/mm3 (0.9-3.2); Mean Corpuscular HGB Conc 31.1 g/dl (32-36); Mean Corpuscular Hemoglobin 25.3 pg (26-34); Mean Corpuscular Volume 81.4 fl (80-100); Nucleated Red Blood Cells Absolute Auto 0.000 K/mm3 (0.0-0.012); Nucleated Red Blood Cells Perc 0.0 % (0.0-0.2); Platelet Count Result 226 k/mm3 (150-375); Red Blood Count 4.58 M/mm3 (4.2-5.4); White Blood Count 4.4 K/mm3 (4.5-10.0)
[2025-03-29 13:09] LABS: Hemoglobin A1C 6.1 % (<5.7)
[2025-03-29 13:14] LABS: Alanine Aminotransferase 21 U/L (6-35); Albumin Level 4.1 g/dL (3.5-5.1); Alkaline Phosphatase 98 U/L (38-126); Anion Gap 4 mmol/L (4-12); Aspartate Amino Transferase 35 U/L (14-36); Bilirubin,Total 0.6 mg/dL (0.2-1.3); Blood Urea Nitrogen 12 mg/dL (7-17); Calcium 9.2 mg/dL (8.4-10.2); Carbon Dioxide 29 mmol/L (22-30); Chloride 105 mmol/L (98-107); Estimated Glomerular Filt Rate > 60; Glucose 89 mg/dL (65-110); Potassium 4.1 mmol/L (3.4-5.0); Sodium 138 mmol/L (137-145); Total Protein 7.6 g/dL (6.3-8.2)
[2025-03-29 13:17] LABS: Iron 130 ug/dL (37-170)
[2025-03-29 13:26] LABS: Percent Iron Saturation 43 % (20-50)
[2025-03-29 13:39] LABS: Free T4 Free Thyroxine 0.90 ng/dL (0.78-2.19)
[2025-03-29 13:41] LABS: Thyroid Stimulating Hormone 1.230 uIU/mL (0.465-4.680)
[2025-03-29 13:58] LABS: Ferritin 28.40 ng/mL (11.1-264)
[2025-03-29 14:17] LABS: Vitamin B12 990.0 pg/mL (239-931)
== END 2025-03-29 12:39 | disposition home or self-care (01) ==
LOC: ANHLAB 12:39
PROVIDERS: PCP Nurse Practitioner Family; Visit Provider Nurse Practitioner Family
DX: K21.9 Gastro-esophageal reflux disease without esophagitis (principal); R79.89 Other specified abnormal findings of blood chemistry; R73.03 Prediabetes; J45.909 Unspecified asthma, uncomplicated; R53.83 Other fatigue; D64.9 Anemia, unspecified
CPT/HCPCS: 36415; 80053; 82607; 82728; 82746; 83036; 83540; 83550; 84439; 84443; 85025

== ENCOUNTER 2025-09-13 08:36 | Outpatient (CLI) | payer OTHER, SELFPAY ==
--- NOTE | ~2025-09-13 | XR_ITS ---
XR chest 2V 09/13/2025 08:57 Indication: Cough, shortness of breath. History of asthma. Procedure: 2 view chest Comparison: No prior studies for comparison. Findings: Heart size. Left lung clear. Right basilar atelectasis. No pleural effusion or pneumothorax. No acute osseous abnormality. The lungs are hyperinflated which is consistent with, but not diagnostic of chronic obstructive pulmonary disease. Impression: 1: Right basilar atelectasis. 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
--- OUTSIDE RECORDS SUMMARY | 2025-09-13 08:42 | XMS_ITS | Clinical Summary ---
Author Organization [facility] Address [address] [place] [address] Care Team Providers Care Child Care Supervisor Name Role Phone Michelle Kenyon NP Primary Care Provider [phone] Social History Tobacco Use Types Packs/Day Years [...] Scan (General) 2022 COVID-19 Vaccine ( - 2024-2 6 season) 2025 Influenza Adult (#1) 2025 RSV Immunization or 60+ Years (1 - 1-dose 75+ series) 01/27/2032 Hepatitis A Vaccines Aged Out No long er eligible based on patient's age to complete this topic Meningococcal B Vaccine Aged Out No l onger eligible based on patient's age to complete this topic Meningococcal Vaccine Aged Out No ramona jorge eligible based on patient's age to complete this topic RSV Immunizations Under 20 Months Aged Out No longer eligible based on patient's age to complete this topic Care Teams Child Care Supervisor Relationship Specialty Start Date End Date Michelle Kenyon NP PCP - General 02/22/16
--- OUTSIDE RECORDS SUMMARY | 2025-09-13 08:42 | XMS_ITS | Clinical Summary ---
Author Organization [facility] Address [address] [place] [address] Care Team Providers Care Waste Disposal Leakage Tester Name Role Phone Unavailable Primary Care Provider [...]
--- OUTSIDE RECORDS SUMMARY | 2025-09-13 08:42 | XMS_ITS | Clinical Summary ---
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
--- OUTSIDE RECORDS SUMMARY | 2025-09-13 08:42 | XMS_ITS | Encounter Summary ---
Author Organization [facility] Address [address] [place] [address] Care Team Providers Care Slitter Service And Setter Name Role Phone Unavailable Primary Care Provider Unavailabl e Prior Encounters Date Type Department Care Team Description 10/04/2019 Converted CPS Chart Documents [facility] [address] [place] [address] <No scans attached> 10/04/2019 Converted 13x Documents [facility] [address] [place] [address] <No scans attached> Plan of [...] 10 ENDODONTIC THERAPY, ANTERIOR TOOTH (EXCLUDING FINAL DRUZE) Routine 02/03/2020 2:00 AM CDT 15 DOBL [...]
--- OUTSIDE RECORDS SUMMARY | 2025-09-13 08:42 | XMS_ITS | Clinical Summary ---
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 Gender Identity Not on file Sexual Orientation Not on file Plan of Treatment Health Maintenance Due Date Last Done Comments Hepatitis C Virus (HCV) Screening 1955 TdaP Immunization 1955 Cologuard 2002 Colonoscopy 2002 Colorectal Cancer Screening 2002 Immunochemical Fecal Occult Blood 2002 Pneumococcal Immunization (5 0+ years) (1 of 1 - PCV) 2007 Zoster Immunization (1 of 2) 2007 Influenza Immunization (#1) 2025 SARS-COV-2 Immunization ( - season) 2025 Respiratory Syncytial Virus (RSV) Immunization (Adult) (1 - 1-dose 75+ series) 01/27/2032 Hepatitis B Immunization Aged Out No longer eligible based on patient's age to complete this topic Human Papillomavirus (HPV) Immunization Aged Out No longer eligible b ased on patient's age to complete this topic Meningococcal Immunization (ACWY) Aged Out No longer eligible based on patient's age to complete this topic Rotavirus Immunization Aged Out No lo nger eligible based on patient's age to complete this topic
[2025-09-13 09:56] LABS: Influenza A QL RT-PCR Negative (Negative); Influenza B QL RT-PCR Negative (Negative); RSV RNA, RT-PCR Negative (Negative); SARS-CoV-2 RNA PCR Negative (Negative)
== END 2025-09-13 08:37 | disposition home or self-care (01) ==
PROVIDERS: PCP Nurse Practitioner Family; Visit Provider Nurse Practitioner Family
DX: J98.11 Atelectasis (principal); J45.909 Unspecified asthma, uncomplicated
CPT/HCPCS: 71046; 87637